=== PATIENT | female | born 1940 | race Caucasian/White ===

== ENCOUNTER 2020-04-23 09:11 | Outpatient (CLI) | payer MEDICARE, SELFPAY ==
--- NOTE | ~2020-04-23 | DEXA_ITS ---
Bone Density Report Name: Mervat Escobedo Age: 79 Sex: Female Ethnicity: White Date of : 1940 Indication: postmenopausal; Referring Provider: Landon Griffith Study: Bone densitometry was performed. Exam Date: April 23, 2020 Accession number: [id number] Bone Density: Region BMD T-score Z-score Classification AP Spine (L1, L2) 0.913 -0.6 1.8 Normal Femoral Neck (Left) 0.657 -1.7 0.5 Osteopenia Total Hip (Left) 0.730 -1.7 0.2 Osteopenia Total Hip Bilateral Avg 0.722 -1.8 0.2 Osteopenia Femoral Neck (Right) 0.598 -2.3 -0.1 Osteopenia Total Hip (Right) 0.713 -1.9 0.1 Osteopenia World Health Organization criteria for BMD impression classify patients as: Normal (T-score at or above -1.0), Osteopenia (T-score between -1.0 and -2.5), or Osteoporosis (T-score at or below -2.5). 10-year Fracture Risk(1): Major Osteoporotic Fracture 16% Hip Fracture 5.0% Reported Risk Factors: [place] (), Neck BMD=0.598, BMI=26.3 (1) FRAX(R) Version 3.08. Fracture probability calculated for an untreated patient. Fracture probability may be lower if the patient has received treatment. Previous Exams: Region Exam Age BMD T-score BMD Change BMD Change Date g/cm2 vs Baseline vs Previous AP Spine(L1, L2) 04/23/2020 79 0.913 -0.6 0.093(11.3%)# -0.003(-0.4%)# 11/06/2013 73 0.916 -0.6 0.096(11.7%)# 0.096(11.7%)# 12/13/2009 69 0.820 -1.4 Total Hip(Left) 04/23/2020 79 0.730 -1.7 -0.092(-11.2%) -0.129(-15.0%) 11/06/2013 73 0.859 -0.7 0.037(4.4%)# 0.037(4.4%)# 12/13/2009 69 0.822 -1.0 Total Hip(Right) 04/23/2020 79 0.713 -1.9 -0.115(-13.9%) -0.157(-18.1%) 11/06/2013 73 0.870 -0.6 0.042(5.1%)# 0.042(5.1%)# 12/13/2009 69 0.828 -0.9 *Denotes significance at 95% confidence level, LSC for AP Spine = 0.022 g/cm2, LSC for Total Hip = 0.027 g/cm2 Impression: The patient has low bone mass, based on the Right Femoral Neck T-score. The patient has an estimated ten-year risk of hip fracture of 5% and an estimated ten-year risk of major fracture of 16%, based on the WHO FRAX algorithm. No significant bone loss was observed. Discussion: BONE DENSITY IS LOW AT ONE OR MORE SKELETAL SITES. THE PATIENT'S BMD AND CLINICAL RISK FACTORS CONTRIBUTE TO THIS PATIENT'S INCREASED RISK OF FRACTURE. This patient's lowest T-score is low at one or more skeletal sites. It meets the World Health Organization's (WHO) criteria for ?low bone mass? (T-score between -1.0 and -2.5). The patient's 10-year risk of hip fracture as calculated by FRAX exceeds the threshold
--- NOTE | ~2020-04-23 | MM_ITS ---
EXAMINATION: MM screening garret BI w karlos HISTORY: Screening mammogram TECHNIQUE: Craniocaudal and mediolateral oblique 3-D tomosynthesis images were obtained and synthetic 2-D images were generated. CAD analysis was submitted and interpreted. COMPARISON: 03/10/2019, 12/17/2017, 12/14/2016 bilateral digital screening mammogram examinations BREAST PARENCHYMAL COMPOSITION: There are scattered areas of fibroglandular density. FINDINGS: Again noted is postoperative change including mild retraction and some architectural distor tion prominent calcified fat necrosis in the upper outer quadrant of the left breast. 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 There is suggestion of an approximately 5 mm and 6 mm masses in the inner aspect of the right breast. Diagnostic right mammogram and right breast ultrasound examination are recommended. Otherwise there is no evidence of interval suspicious mass, calcification, or architectural distortio n to suggest malignancy in either breast. There has been no suspicious interval change. IMPRESSION: 1. Suggestion of right breast masses 2. Recommend diagnostic right mammogram and right breast ultrasound examination. BI-RADS Category 0: Incomplete: Needs additional imaging evaluation. Reviewed, dictated and finalized at location A. IMPRESSION: 1. Suggestion of right breast masses 2. Recommend diagnostic right mammogram and right breast ultrasound examination . BI-RADS Category 0: Incomplete: Needs additional imaging evaluation.
== END 2020-04-23 09:12 | disposition home or self-care (01) ==
PROVIDERS: PCP Family Medicine; Visit Provider Family Medicine
DX: Z12.31 Encounter for screening mammogram for malignant neoplasm of breast (principal); M81.0 Age-related osteoporosis without current pathological fracture; R92.8 Other abnormal and inconclusive findings on diagnostic imaging of breast; M85.852 Other specified disorders of bone density and structure, left thigh; M85.851 Other specified disorders of bone density and structure, right thigh
CPT/HCPCS: 77063; 77067; 77080

== ENCOUNTER 2020-05-10 12:10 | Outpatient (CLI) | payer MEDICARE, SELFPAY ==
--- NOTE | ~2020-05-10 | MMUS_ITS ---
EXAMINATION: MM diagnostic mammo unilat RT, US breast RT limited HISTORY: Possible right breast masses on screening mammogram TECHNIQUE: Additional 3-D tomosynthesis images of the right breast were performed and synthetic 2-D i mages were generated. CAD analysis was submitted and interpreted. High resolution limited right breas t ultrasound was performed. COMPARISON: 04/23/2020, 03/10/2019, 12/17/2017, 12/14/2016 FINDINGS: MAMMOGRAPHIC FINDINGS: With spot compression, the right breast masses at the 3:00 and 2:00 locations in the right breast hav e a similar appearance to prior mammograms. There has been no suspicious interval change. No suspicio us calcification or architectural distortion are identified. ULTRASOUND: There is a 6 mm oval, circumscribed, parallel, hypoechoic mass with central echogenicity at the 1:00 location 5 cm from the nipple which has an appearance suggestive of an intramammary lymph node. A 4 m m round, circumscribed, parallel, hypoechoic mass with no posterior features or internal vascularity is present at the 3:00 location 3 cm from the nipple. IMPRESSION: 1. Probably benign right breast masses. 2. Recommend 6 month follow-up right diagnostic mammogram and targeted ultrasound. BI-RADS category 3, probably benign findings. Reviewed, dictated and finalized at location A. IMPRESSION: 1. Probably benign right breast masses. 2. Recommend 6 month follow-up right diagnostic mammogram and targeted ultrasou nd. BI-RADS category 3, probably benign findings.
== END 2020-05-10 12:11 | disposition home or self-care (01) ==
PROVIDERS: PCP Family Medicine; Visit Provider Family Medicine
DX: R92.8 Other abnormal and inconclusive findings on diagnostic imaging of breast (principal)
CPT/HCPCS: 76642; 77065

== ENCOUNTER 2021-01-10 13:51 | Outpatient (CLI) | payer MEDICARE, SELFPAY ==
--- NOTE | ~2021-01-10 | MMUS_ITS ---
EXAMINATION: MM diagnostic garret RT w karlos, US breast RT complete HISTORY: Follow-up right breast masses TECHNIQUE: Additional 3-D tomosynthesis images of the right breast were performed and synthetic 2-D i mages were generated. CAD analysis was submitted and interpreted. High resolution right breast ultras ound was performed. COMPARISON: Comparison to multiple prior studies sequentially, with oldest reviewed study dated 12/14. BREAST PARENCHYMAL COMPOSITION: Breast composed of scattered areas of fibroglandular density. FINDINGS: MAMMOGRAPHIC FINDINGS: There is a 6 mm mass in the upper central aspect of the right breast posteriorly which is unchanged i n size and appearance compared with prior studies dating back to 12/14/2016. There is a smaller mass i n the lower inner quadrant of the right breast which has decreased slightly in size compared with jessica or examination now measuring 5 mm compared with 6 mm on prior study. There is a punctate associated c alcification. ULTRASOUND: At 1:00, 5 cm from the nipple, there is an irregular shaped hypoechoic mass with associated internal calcification and mixed posterior attenuation measuring 6 mm corresponding to the larger mass by mamm ography. No internal vascularity. At 3:00, 3 cm from the nipple, there is an hypoechoic mass measurin g 5 x 4 x 4 mm without significant change from prior examination. There are no significant posterior features or internal vascularity. IMPRESSION: 1. Stable right breast masses with lack of interval change or slightly decreased and size compared wi th studies dating back to 12/14/2016. Given the lack of progression over 4 years these are considered benign. 2. Routine yearly screening mammogram and regular clinical breast examination are recommended. BI-RADS Category 2: Benign finding(s). Reviewed, dictated and finalized at location A. ST AND REPERTOIRE MANAGER IMPRESSION: 1. Stable right breast masses with lack of interval change or slightly decrease d and size compared with studies dating back to 12/14/2016. Given the lack of pr ogression over 4 years these are considered benign. 2. Routine yearly screening mammogram and regular clinical breast examination a re recommended. BI-RADS Category 2: Benign finding(s).
== END 2021-01-10 13:52 | disposition home or self-care (01) ==
PROVIDERS: PCP Family Medicine; Visit Provider Family Medicine
DX: R92.8 Other abnormal and inconclusive findings on diagnostic imaging of breast (principal)
CPT/HCPCS: 76641; 77061; 77065; G0279

== ENCOUNTER 2021-04-15 08:34 | Outpatient (CLI) | payer MEDICARE, SELFPAY ==
--- NOTE | 2021-04-15 | ECG_ITS ---
Measurements Intervals [place] Rate: 65 P: NC: 0 QRS: 24 QRSD: 97 T: -10 QT: 417 QTc: 436 Interpretive Statements ATRIAL FIBRILLATION NONSPECIFIC ST & T-WAVE ABNORMALITY- INFERIOR LEADS BASELINE ARTIFACT- I, II, III, AVR, AVL, AVF ABNORMAL ECG Electronically Signed On 04-15-2021 12:04:14 CDT by Ozzy Georges D.O.
[2021-04-15 10:00] LABS: Hematocrit 41.3 % (37.0-47.0); Hemoglobin 13.6 g/dL (12.0-15.0)
[2021-04-15 10:09] LABS: Albumin Level 4.3 g/dL (3.5-5.1); Estimated Glomerular Filt Rate > 60; Glucose 108 mg/dL (65-105)
[2021-04-15 10:41] LABS: Hemoglobin A1C 5.6 % (<5.7)
== END 2021-04-15 08:35 | disposition home or self-care (01) ==
PROVIDERS: PCP Family Medicine; Visit Provider Orthopaedic Surgery
DX: Z01.818 Encounter for other preprocedural examination (principal); I48.0 Paroxysmal atrial fibrillation; I10 Essential (primary) hypertension; R01.1 Cardiac murmur, unspecified; E03.9 Hypothyroidism, unspecified; D56.5 Hemoglobin E-beta thalassemia; M17.9 Osteoarthritis of knee, unspecified; I48.91 Unspecified atrial fibrillation
CPT/HCPCS: 36415; 82040; 82565; 82947; 83036; 85014; 85018; 93005

== ENCOUNTER 2021-06-19 09:51 | Outpatient (CLI) | payer MEDICARE, SELFPAY ==
[2021-06-19 11:22] LABS: Basophils Percent Auto 0.4 % (0.2-1.2); Eosinophils Absolute Auto 0.1 K/mm3 (0-0.3); Eosinophils Percent Auto 2.9 % (0-4.4); Hematocrit 38.5 % (37.0-47.0); Hemoglobin 12.9 g/dL (12.0-15.0); Immature Granulocyte Absolute 0.02 K/mm3 (0.00-0.031); Immature Granulocyte Percent A 0.4 % (0-0.5); Lymphocytes Absolute Auto 1.19 K/mm3 (0.9-3.2); Lymphocytes Percent Auto 24.4 % (18.3-44.2); Mean Corpuscular HGB Conc 33.5 g/dl (32-36); Mean Corpuscular Hemoglobin 31.2 pg (26-34); Mean Corpuscular Volume 93.2 fl (80-100); Mean Platelet Volume 9.3 fl (7.4-10.4); Monocytes Absolute Auto 0.6 K/mm3 (0.1-0.6); Monocytes Percent Auto 12.7 % (2.6-8.5); Neutrophils Absolute Auto 2.9 K/mm3 (1.3-6.7); Neutrophils Percent Auto 59.2 % (45.5-73.1); Platelet Count Result 227 k/mm3 (150-375); Red Blood Count 4.13 M/mm3 (4.2-5.4); Red Cell Distribution Width 11.9 % (11.5-14.5); White Blood Count 4.9 K/mm3 (4.5-10.0)
[2021-06-19 11:34] LABS: Anion Gap 7 mmol/L (8-16); Blood Urea Nitrogen 20 mg/dL (7-17); Calcium 10.3 mg/dL (8.4-10.2); Carbon Dioxide 31 mmol/L (22-30); Chloride 99 mmol/L (98-107); Estimated Glomerular Filt Rate 60; Glucose 105 mg/dL (65-110); Potassium 3.4 mmol/L (3.4-5.0); Sodium 137 mmol/L (137-145)
[2021-06-19 11:39] LABS: Urine Cotinine NEGATIVE
[2021-06-21 13:54] LABS: Albumin Level 4.2 g/dL (3.5-5.1)
== END 2021-06-19 09:52 | disposition home or self-care (01) ==
PROVIDERS: Anesthesiology; PCP Family Medicine; Visit Provider Orthopaedic Surgery
DX: M17.11 Unilateral primary osteoarthritis, right knee (principal); Z01.818 Encounter for other preprocedural examination
CPT/HCPCS: 36415; 80048; 80307; 82040; 85025; 87081

== ENCOUNTER 2021-07-06 01:27 | Day surgery (SDC) | payer MEDICARE, SELFPAY ==
[2021-06-19 10:18] VITALS: BP 130/69; PULSE 62; RESP 18; TEMP 36.9; O2SAT 96; BMI 29.7
[2021-07-06] VITALS (16 sets, daily range): BP systolic 114–141; BP diastolic 53–78; PULSE 53–78; RESP 12–20; TEMP 36.3–36.7; O2SAT 95–100
--- NOTE | ~2021-07-06 | XR_ITS ---
EXAMINATION: XR knee RT 2V DATE: 07/06/2021 09:32 INDICATION: Right knee arthroplasty. Postop. TECHNIQUE: 2 views of right knee were obtained. COMPARISON: Right knee radiographs 03/30/2021 FINDINGS: There is a total right knee arthroplasty without patellar resurfacing in near-anatomic alig nment. There are tiny osteophytes of the patella. There is gas in the knee joint and soft tissues, co nsistent with recent surgery. There is a small knee joint effusion. IMPRESSION: 1. Total right knee arthroplasty in near-anatomic alignment. Reviewed, dictated and finalized at location A.
[2021-07-06] MEDS: ACETAMINOPHEN 500 MG TABLET 1000 MG PO (06:26)
[2021-07-06] MEDS: LACTATED RINGERS 1,000 ML 30 ML IV CONT ×2 (06:30→09:19)
[2021-07-06] MEDS: TRANEXAMIC ACID 1,000MG/ISO100 1,000 MG/100 ML BAG 200 MG IVPB (06:36)
--- NOTE | 2021-07-06 06:44 | WPDANESEPPF ---
Anes - Initial Pre Proc Eval Procedure: Operation Date: 07/06/21 07:30 Proposed Procedures p Right Total Knee Arthroplasty - Nathan Vincent MD Date/Time: 07/06/21 06:44 Surgeon: Nathan Vincent MD Pre Op Diagnosis: Primary OA Right knee Patient Data Age: 81 Gender: F Height: 1.5 m Weight: 66.8 kg Last Vital Signs Temp 36.9 C 06/19/21 10:18 Pulse 62 06/19/21 10:18 Resp 18 06/19/21 10:18 BP 130/69 06/19/21 10:18 Pulse Ox 96 06/19/21 10:18 Allergies Allergy/AdvReac Type Severity Reaction Status Date / Time No Known Allergies Allergy Verified 07/06/21 06:21 Home Medications Medication Instructions Recorded Confirmed Type apixaban 5 mg tablet 5 mg PO BID 08/02/20 07/06/21 History cholecalciferol (vitamin D3) 25 2,000 unit PO DAILY tablet 12/15/20 07/06/21 History mcg (1,000 unit) tablet ytjpmxbz-kqw-efruw acid 0.4 1 tablet PO DAILY 03/31/21 07/06/21 History mg-lycopene 300 mcg-lutein 250 mcg tablet amiloride-hydrochlorothiazide 1 tablet PO QAM 06/19/21 07/06/21 History ferrous sulfate 27 mg PO DAILY 06/19/21 07/06/21 History metoprolol tartrate 12.5 mg PO BID 06/19/21 07/06/21 History nifedipine 30 mg PO QAM 06/19/21 07/06/21 History oxybutynin chloride 10 mg PO HS 06/19/21 07/06/21 History triamcinolone acetonide 1 applic TOPICAL DAILY PRN 06/19/21 07/06/21 History Patient hx anesthesia problems: none Family hx anesthesia problems: none PMFSH Past Medical History Medical History Current use of manager long term care anticoagulation Essential (primary) hypertension Heart murmur History of breast cancer Hypothyroidism IFG (impaired fasting glucose) OAB (overactive bladder) Osteoarthritis of both knees Osteopenia Paroxysmal A-fib Vitamin D deficiency, unspecified Surgical History Surgical History History of cholecystectomy History of hysterectomy History of lumpectomy History of tubal ligation Vaginal prolapse Family History Family History Sibling Family history of throat cancer Mother Acute myocardial infarction Other Diabetes mellitus Family history of arthritis Family history of coronary artery disease Family history of diabetes mellitus in first degree relative Social History Social History Smoking status: Never smoker Second hand tobacco smoke exposure: Yes Alcohol intake: never Substance use: never Substance use type: does not use Living arrangements: with family Additional living arrangements comments: SON AND [id number] Gender identity (if verbalized by the patient): Female Spiritual care concerns: Yes (REFUSES BLOOD PRODUCTS/TRANSFUSION) Anes - Eval Final PreProcedure Day of Procedure 07/06/21 06:44 Patient weight: overweight Heart: regular rate and rhythm Lungs: clear to auscultation and normal air movement Airway: Mallampati scale class II Neurological: alert and oriented Last oral intake: >/= 8 hours ASA classification: III Emergent: no Anesthetic plan: proceed Anesthesia type and monitoring: general LMA and standard monitoring Informed Consent: The patient's anesthetic plan and its attendant risks and benefits were discussed with the patient/family/POA. Questions were solicited and answers provided to the satisfaction of the patient/family/POA.
--- NOTE | 2021-07-06 07:23 | WPDHPUPDATE1 ---
History and Physical Update Update Date/Time: 07/06/21 07:23 History and Physical has been reviewed, including an updated exam of the patient. There are NO changes in the patient's condition. Risks, benefits, and alternatives have been discussed and questions answered. Patient agrees to proceed with procedure.
--- NOTE | 2021-07-06 07:26 | WPDANESPNB ---
Anes - Peripheral Nerve Block Date/Time: 07/06/21 07:26 I have discussed with the patient/family/POA the placement of a peripheral nerve block for post-operative pain management, including associated risks, benefits, complications, and side effects. Alternative methods of post-operative analgesia were detailed. Questions were solicited and answers provided to the satisfaction of the patient/family/POA. Time-Out: A pre-procedural Time-Out was completed immediately before starting the procedure and confirmed: Patient Identification, Site, Procedure, Patient Position and the Availability of Requisite Equipment. Clinical Indications: Acute post-operative pain management requested by the operative surgeon. Nerve Block Insertion Note Anes-nerve block: adductor canal right Patient position: supine Skin prep: chlorhexidine Needle: 22 gauge, stimulating, insulated echogenic needle. Needle length: 80 mm Technique: ultrasound Injectate: bupivacaine 0.5% with epi 5 mcg/ml (30cc - no epi) Observations: tolerated well Complications: none Procedure start time:: 721 Procedure end time:: 724
[2021-07-06] MEDS: ceFAZolin 2 GM/D5W 50 ML 2 GM/50 ML BAG IVPB (07:29)
[2021-07-06] MEDS: fentaNYL CITRATE INJ (*CRX) 100 MCG/2 ML VIAL 25 MCG IV PUSH ×3 (09:53→10:19)
--- NOTE | 2021-07-06 11:45 | ADMGEN ---
This patient, Mervat Escobedo, was admitted to Medical Room 261-01 from pacu. Patient/family oriented to hospital policies and general routines including ID bracelet, bed and alarms, visiting hours, pain management, procedures, bathroom and other care routines, personal items, smoking policy, room service/diet, and visiting hours. Information on how to activate the Rapid Response Team has been discussed. Patient/Family are encouraged to report perceived risks to care and to ask questions if they do not understand what they are told or what they should do.
[2021-07-06] MEDS: CHOLECALCIFEROL 1,000 UNITS TABLET 2000 UNITS PO (12:41)
--- NOTE | 2021-07-06 16:16 | P.OP_ITS ---
Procedure Note - Detailed Date of Procedure 07/06/21 Pre-op Diagnosis Primary OA Right knee Post-op Diagnosis same Procedure Performed Total knee arthroplasty, right. Surgeon Nathan Vincent MD Electric Well Logging Operator Jyoti Benton PA-C Anesthesia general and regional (Subsartorial block.) Findings Good bone quality. Standard resections. PCL release. Description of Procedure Physician integration assistant, Jyoti Benton PA-C, required for surgery; including patient positioning, draping, tissue retraction, maintaining instrument position, cement removal, wound closure, and dressing placement. OPERATIVE DETAILS: The patient was given a nerve block preoperatively, and then brought to the operating room. A general anesthetic was administered. The leg was prepped and draped in the usual sterile fashion. The limb was elevated and the tourniquet inflated to 300 mmHg. A longitudinal incision was created along the medial border of the patella and patellar tendon, and a minimally invasive optimized trivector approach to the knee was performed. A moderate medial release was taken. The knee was then flexed. The osteophytes were carefully removed. The intramedullary guide was placed in the femoral canal. The distal femoral resection was then taken with the oscillating saw. The collateral ligaments were carefully protected. The tibia was carefully exposed. The jig was applied, and the proximal tibia was resected according to preoperative plan. The pain really anesthetic mixture was injected into the periarticular tissues. The knee was balanced in extension, and appropriate releases were taken where needed. The anterior cruciate ligament and meniscal remnants were removed. The posterior cruciate ligament was preserved, and released distally later. The patella was in good condition. Osteophytes trimmed, and denervation performed with the bipolar cautery. The femur was sized and rotation assessed using a combination of gap balancing, posterior referencing, and the AP axis. The 4 in 1 cutting block was used to finish the femoral cuts after equal gaps were assured. The lug holes were drilled. The osteophytes were carefully removed from the back of the knee. The knee was copiously irrigated with antibiotic solution periodically throughout the procedure. The meniscal remnants were removed. The spacer block was used to confirm equal flexion and extension gaps. Further releases were performed as needed. The tibia was sized and broached. The bony surfaces were prepared for cementing with pulsatile lavage. The real tibial component and femoral components were cemented into position. Excess cement was carefully removed. The polyethylene insert was placed. Patellar tracking was carefully assessed. No additional releases were required. The wound was closed with #1 Vicryl suture, #2 Quill suture, 2-Yuwvxh-sgp suture, and 2-0 Strata-fix suture followed by Steri-Strips. A sterile bulky dressing was applied. Meticulous hemostasis was maintained throughout the procedure. There were no complications. The patient was extubated and brought to the recovery room in stable condition after the application of sterile dressing with Amol bandage. Implants Optimum Magazineathlon knee system, low profile cemented tibia size 4, cemented cruciate-retaining femoral component size 4 ,and an 9 mm cruciate stabilizing polyethylene insert. Estimated Blood Loss -100.0 Drains No Complications No immediate complications Condition stable Disposition PACU
[2021-07-06] MEDS: METOPROLOL TARTRATE 12.5 MG TABLET PO (16:27)
--- NOTE | 2021-07-06 17:27 | PHAR ---
HOME MED UNABLE TO IDENTIFY PINK TABLET NO MARKINGS FERROUS SULFATE 27MG ONE DAILY
[2021-07-06] MEDS: APIXABAN 2.5 MG TABLET PO (22:31)
[2021-07-06] MEDS: FAMOTIDINE 20 MG TABLET PO (22:31)
[2021-07-06] MEDS: SENNOSIDES 8.6 MG TABLET 17.2 MG PO (22:32)
[2021-07-07 00:29] VITALS: BP 133/60; PULSE 83; RESP 18; TEMP 36.4; O2SAT 96
[2021-07-07 04:29] VITALS: BP 141/55; PULSE 83; RESP 20; TEMP 36.5; O2SAT 98
[2021-07-07 06:25] LABS: Basophils Percent Auto 0.1 % (0.2-1.2); Eosinophils Absolute Auto 0.1 K/mm3 (0-0.3); Eosinophils Percent Auto 0.5 % (0-4.4); Hematocrit 33.5 % (37.0-47.0); Hemoglobin 10.9 g/dL (12.0-15.0); Immature Granulocyte Absolute 0.04 K/mm3 (0.00-0.031); Immature Granulocyte Percent A 0.4 % (0-0.5); Lymphocytes Absolute Auto 1.09 K/mm3 (0.9-3.2); Lymphocytes Percent Auto 11.2 % (18.3-44.2); Mean Corpuscular HGB Conc 32.5 g/dl (32-36); Mean Corpuscular Hemoglobin 30.9 pg (26-34); Mean Corpuscular Volume 94.9 fl (80-100); Mean Platelet Volume 10.4 fl (7.4-10.4); Monocytes Percent Auto 10.7 % (2.6-8.5); Neutrophils Absolute Auto 7.5 K/mm3 (1.3-6.7); Neutrophils Percent Auto 77.1 % (45.5-73.1); Platelet Count Result 206 k/mm3 (150-375); Red Blood Count 3.53 M/mm3 (4.2-5.4); White Blood Count 9.8 K/mm3 (4.5-10.0)
[2021-07-07 06:47] LABS: Anion Gap 8 mmol/L (8-16); Blood Urea Nitrogen 19 mg/dL (7-17); Calcium 9.7 mg/dL (8.4-10.2); Carbon Dioxide 29 mmol/L (22-30); Chloride 96 mmol/L (98-107); Estimated Glomerular Filt Rate 53; Glucose 104 mg/dL (65-110); Potassium 3.7 mmol/L (3.4-5.0); Sodium 133 mmol/L (137-145)
[2021-07-07 08:49] VITALS: PULSE 65
[2021-07-07] MEDS: NIFEdipine 30 MG TAB.ER.24 PO (08:49)
[2021-07-07] MEDS: METOPROLOL TARTRATE 12.5 MG TABLET PO (08:49)
[2021-07-07] MEDS: aMILoride HCL 5 MG TABLET PO (08:49)
[2021-07-07] MEDS: hydroCHLOROthiazide 25 MG TABLET 50 MG PO (08:50)
[2021-07-07] MEDS: FAMOTIDINE 20 MG TABLET PO (08:50)
[2021-07-07] MEDS: APIXABAN 2.5 MG TABLET PO (08:50)
[2021-07-07] MEDS: CHOLECALCIFEROL 1,000 UNITS TABLET 2000 UNITS PO (08:50)
[2021-07-07] MEDS: MULTIVITAMINS /C LUTEIN (CENTRUM SILVER) TABLET *BKC 1 TAB PO (08:50)
[2021-07-07 10:05] VITALS: BP 147/67; PULSE 83; RESP 16; TEMP 36.7; O2SAT 96
--- NOTE | 2021-07-07 11:29 | PM.DS ---
DS: Admitting Diagnosis Admitting Diagnosis OA knee Right DS: Discharge Diagnosis Discharge Diagnosis (1) Status post total right knee replacement: Code(s): Z96.651 - Presence of right artificial knee joint Status: Acute Assessment and Plan: Postop day 1: Right total knee arthroplasty. Patient tolerated procedure well. No complications. Pain manageable with pain medication. No numbness or tingling. We had a lengthy discussion regarding postoperative wound care, limitations, expectations, and exercises. Patient shows good understanding. She has had initial physical therapy and is tolerating it well. Patient just found out that her son as . She does not have help at home and will need Home Health to help her with hygiene post operatively. DVT prophylaxis: Eliquis 2.5 mg BID for 12 days then back to normal 5mg BID dose. Pain medication: Percocet. Patient has followup appointment with Dr. Vincent in 3 weeks. If questions or concerns please call office at . DS: Summary Hospital Course Reason for hospitalization: Total knee arthroplasty Hospital Course: Patient tolerated procedure well. Has had initial PT/OT. No complications. Pain well managed. Status at Discharge Functional status at discharge: uses cane/walker Overall status at discharge: patient is progressing back to baseline Time Spent with Patient Time attestation: Total time spent providing and/or coordinating discharge services: Exam Narrative: Normal weight female. Resting comfortably in chair. No acute distress. A&O x3. Wearing compression socks bilaterally. Dressing intact. Small hayder sized area of dried blood on Mepilex. Moderate swelling. Small area of ecchymosis. No erythema. No hematoma. Good early range of motion. Calf nontender. Neurologic status intact. No varicosities. Distal pulses palpable. DS: Data Data Completed and Pending Labs on day of discharge: Labs from last 24 hours 07/07/21 07/07/21 05:15 05:15 WBC 9.8 RBC 3.53 L Hgb 10.9 L Hct 33.5 L MCV 94.9 MCH 30.9 MCHC 32.5 RDW 12.0 Plt Count 206 MPV 10.4 Immature Gran % (Auto) 0.4 Neut % (Auto) 77.1 H Lymph % (Auto) 11.2 L [place] % (Auto) 10.7 H Eos % (Auto) 0.5 Baso % (Auto) 0.1 L Lymph # (Auto) 1.09 [place] # (Auto) 1.0 H Eos # (Auto) 0.1 Baso # (Auto) 0.0 Abs Immat Gran (auto) 0.04 H Absolute Neuts (auto) 7.5 H Absolute Nucleated RBC 0.0 Nucleated RBC % 0.0 Sodium 133 L Potassium 3.7 Chloride 96 L Carbon Dioxide 29 Anion Gap 8 BUN 19 H Creatinine 1.00 Estim Creat Clear Calc Not Reportable Estimated GFR 53 L Glucose 104 Calcium 9.7 Discharge Plan Discharge Patient Disposition: Home Health Service Discharge Instructions: See instruction sheet Patient Instructions: Antibiotic Form, Apixaban (By mouth) Stand Alone Forms: General Discharge Information Follow-up/Referrals: Jyoti Benton PA [Physician Super[facility]] - Discharge Medications: New Eliquis 2.5 mg Tablet 2.5 mg PO Q12HR Qty: 24 RF: 0 oxycodone-acetaminophen 5-325 mg tablet 1 - 2 tablet PO Q4-6H MDD 6 PRN (Reason: pain) Qty: 30 RF: 0 Continued cholecalciferol (vitamin D3) 25 mcg (1,000 unit) tablet 2,000 unit PO DAILY RF: 0 Centrum Silver 0.4-300-250 mg-mcg-mcg tablet 1 tablet PO DAILY RF: 0 ferrous sulfate 27 mg iron Tablet 27 mg PO DAILY RF: 0 nifedipine 30 mg tablet extended release 24hr 30 mg PO QAM RF: 0 amiloride-hydrochlorothiazide 5-50 mg tablet 1 tablet PO QAM RF: 0 oxybutynin chloride 10 mg tablet extended release 24hr 10 mg PO HS RF: 0 triamcinolone acetonide 0.1 % cream 1 applic topical DAILY PRN (Reason: itching) RF: 0 metoprolol tartrate 25 mg tablet 12.5 mg PO BID RF: 0 Held Eliquis 5 mg tablet 5 mg PO BID RF: 0 Hold Instructions: Resume on 07/19/21. Take 2.5 mg (half a pill) twice a
[2021-07-07] MEDS: oxyCODONE HCL (*CRX) 5 MG TAB IR PO (13:39)
[2021-07-07 14:35] VITALS: BP 141/52; PULSE 83; RESP 16; TEMP 36.9; O2SAT 94
--- NOTE | 2021-07-07 15:36 | P.PNAN_ITS ---
Anes - Prog Note Post-Op Date/Time: 07/07/21 15:36 Cardiovascular status: normal Respiratory status: normal Airway patency: baseline Mental status: baseline Post-Op hydration status: normal Vital Signs: Last Vital Signs Temp 36.9 C 07/07/21 14:35 Pulse 83 07/07/21 14:35 Resp 16 07/07/21 14:35 BP 141/52 H 07/07/21 14:35 Pulse Ox 94 07/07/21 14:35 Pain Score (VAS): 12/04 I/O: Intake & Output 07/06/21 07/07/21 07/07/21 23:59 07:59 15:59 Intake Total 1390 450 300 Output Total 500 1400 Balance 890 -950 300 Laboratory Tests 07/07/21 05:15 07/07/21 05:15 07/07/21 07/07/21 05:15 05:15 WBC 9.8 RBC 3.53 L Hgb 10.9 L Hct 33.5 L MCV 94.9 MCH 30.9 MCHC 32.5 RDW 12.0 Plt Count 206 MPV 10.4 Immature Gran % (Auto) 0.4 Neut % (Auto) 77.1 H Lymph % (Auto) 11.2 L [place] % (Auto) 10.7 H Eos % (Auto) 0.5 Baso % (Auto) 0.1 L Lymph # (Auto) 1.09 [place] # (Auto) 1.0 H Eos # (Auto) 0.1 Baso # (Auto) 0.0 Abs Immat Gran (auto) 0.04 H Absolute Neuts (auto) 7.5 H Absolute Nucleated RBC 0.0 Nucleated RBC % 0.0 Sodium 133 L Potassium 3.7 Chloride 96 L Carbon Dioxide 29 Anion Gap 8 BUN 19 H Creatinine 1.00 Estim Creat Clear Calc Not Reportable Estimated GFR 53 L Glucose 104 Calcium 9.7 Post-procedural complaints: none Patient Feedback: Patient satisfied with anesthetic care.
== END 2021-07-07 16:41 | disposition home health service (06) ==
LOC: ANHSURGERY 09:40 → ANH2MED 10:48
PROVIDERS: Physician Assistant Surgical; PCP Family Medicine; Visit Provider Orthopaedic Surgery
PROC: (CPT 27447; principal; 2021-07-06 07:30)
DX: M16.11 Unilateral primary osteoarthritis, right hip (principal); G89.18 Other acute postprocedural pain; I10 Essential (primary) hypertension; R01.1 Cardiac murmur, unspecified; E03.9 Hypothyroidism, unspecified; R73.01 Impaired fasting glucose; N32.81 Overactive bladder; E55.9 Vitamin D deficiency, unspecified; Z85.3 Personal history of malignant neoplasm of breast; I48.0 Paroxysmal atrial fibrillation; Z79.01 Long term (current) use of anticoagulants
CPT/HCPCS: 27447; 64447; 36415; 73560; 80048; 80307; 82040; 85025; 87081; 97110; 97116; 97161; 97165; 97530; 97535; A9270; C1713; C1776; J0131; J0171; J0690; J1100; J1885; J2270; J2405; J2704; J2795; J3010; J7120

== ENCOUNTER 2022-02-20 09:57 | Outpatient (CLI) | payer MEDICARE, SELFPAY ==
--- NOTE | ~2022-02-20 | MM_ITS ---
EXAMINATION: MM screening [facility] BI w karlos HISTORY: Screening mammogram, history of left breast cancer TECHNIQUE: Craniocaudal and mediolateral oblique 3-D tomosynthesis images were obtained and synthetic 2-D images were generated. CAD analysis was submitted and interpreted. COMPARISON: 01/10/2021, 05/10/2020, 04/23/2020, 03/10/2019 BREAST PARENCHYMAL COMPOSITION: There are scattered areas of fibroglandular density. FINDINGS: Stable lumpectomy changes are noted in the left breast. There are also stable masses of the right breast, considered benign given the lack of interval change. There is no suspicious mass, calc ification, or architectural distortion to suggest malignancy in either breast. There has been no susp icious interval change. IMPRESSION: 1. No mammographic evidence of malignancy. 2. Recommend routine screening mammography in one year. BI-RADS Category 2: Benign finding(s). Reviewed, dictated and finalized at location A.
== END 2022-02-20 09:58 | disposition home or self-care (01) ==
LOC: ANHIMG 09:59
PROVIDERS: PCP Family Medicine; Visit Provider Family Medicine
DX: Z12.31 Encounter for screening mammogram for malignant neoplasm of breast (principal)
CPT/HCPCS: 77063; 77067

== ENCOUNTER 2022-05-01 14:01 | Outpatient (CLI) | payer MEDICARE, SELFPAY ==
--- NOTE | ~2022-05-01 | DEXA_ITS ---
Bone Density Report Name: ELVIA HAYES Age: 81 Sex: Female Ethnicity: White Date of : 1940 Indication: osteopenia; height loss; cancer; hysterectomy; postmenopausal Referring Provider: PAYTON LANDAVERDE Study: Bone densitometry was performed. Exam Date: May 01, 2022 Accession number: [id number] Bone Density: Region BMD T-score Z-score Classification AP Spine(L1, L2) 1.002 0.2 2.7 Normal Femoral Neck (Left) 0.653 -1.8 0.5 Osteopenia Total Hip (Left) 0.726 -1.8 0.3 Osteopenia Femoral Neck (Right) 0.589 -2.3 0.0 Osteopenia Total Hip (Right) 0.664 -2.3 -0.2 Osteopenia Total Hip Mean 0.695 -2.1 0.1 Osteopenia World Health Organization criteria for BMD impression classify patients as: Normal (T-score at or above -1.0), Osteopenia (T-score between -1.0 and -2.5), or Osteoporosis (T-score at or below -2.5). 10-year Fracture Risk(1): Major Osteoporotic Fracture 17% Hip Fracture 5.4% Reported Risk Factors: [place] (), Neck BMD=0.589, BMI=27.1 (1) FRAX(R) Version 3.08. Fracture probability calculated for an untreated patient. Fracture probability may be lower if the patient has received treatment. Previous Exams: Region Exam Age BMD T-score BMD Change BMD Change Date g/cm2 vs Baseline vs Previous AP Spine (L1-L2) 05/01/2022 81 1.002 0.2 0.090 (9.8%)* 0.090 (9.8%)* 04/23/2020 79 0.913 -0.6 Total Hip(Left) 05/01/2022 81 0.726 -1.8 -0.004 (-0.5%) -0.004 (-0.5%) 04/23/2020 79 0.730 -1.7 Total Hip(Right) 05/01/2022 81 0.664 -2.3 -0.048 (-6.8%) -0.048 (-6.8%) 04/23/2020 79 0.713 -1.9 *Denotes significance at 95% confidence level, LSC for AP Spine = 0.022 g/cm2, LSC for Total Hip = 0.027 g/cm2 Clinical Information Provided by Patient: Has used the following medications: Vitamin D Has the following medical conditions: Cancer, Hysterectomy Patient maximum height was 62 Menopause Age: 52 Does not regularly consume dairy products Drinks caffeinated beverages Onset of menses at age 14 Number of children 3 Impression: The patient has low bone mass, based on the Right Total Hip T-score. The patient has an estimated ten-year risk of hip fracture of 5.4% and an estimated ten-year risk of major fracture of 17%, based on the WHO FRAX algorithm. The BMD for the Total Hip(Right) decreased, changing by -6.8% since the last DXA exam. Discussion: BONE DENSITY IS LOW AT ONE OR MORE SKELETAL SITES. THE
== END 2022-05-01 14:02 | disposition home or self-care (01) ==
PROVIDERS: PCP Family Medicine; Visit Provider Physician Assistant
DX: Z78.0 Asymptomatic menopausal state (principal); M85.852 Other specified disorders of bone density and structure, left thigh; M85.851 Other specified disorders of bone density and structure, right thigh
CPT/HCPCS: 77080

== ENCOUNTER 2023-04-05 13:37 | Outpatient (CLI) | payer OTHER, SELFPAY ==
--- NOTE | ~2023-04-05 | MM_ITS ---
EXAMINATION: MM screening [facility] BI w karlos HISTORY: Screening mammogram, history of left breast cancer TECHNIQUE: Craniocaudal and mediolateral oblique 3-D tomosynthesis images were obtained and synthetic 2-D images were generated. CAD analysis was submitted and interpreted. COMPARISON: 02/20/2022, 01/10/2021, 05/10/2020, 04/23/2020 BREAST PARENCHYMAL COMPOSITION: There are scattered areas of fibroglandular density. FINDINGS: Again noted are stable lumpectomy changes in the left breast. Stable right breast masses ar e considered benign given the lack of interval change. No suspicious mass, calcification, or architec tural distortion are identified in either breast to suggest malignancy. There has been no suspicious interval change. IMPRESSION: 1. No mammographic evidence of malignancy. 2. Recommend routine screening mammography while the patient remains in good health. BI-RADS Category 2: Benign finding(s). Reviewed, dictated and finalized at location A. IMPRESSION: 1. No mammographic evidence of malignancy. 2. Recommend routine screening mammography while the patient remains in good he alth. BI-RADS Category 2: Benign finding(s).
== END 2023-04-05 13:38 | disposition home or self-care (01) ==
LOC: ANHIMG 13:39
PROVIDERS: PCP Family Medicine; Visit Provider Physician Assistant
DX: Z12.31 Encounter for screening mammogram for malignant neoplasm of breast (principal)
CPT/HCPCS: 77063; 77067

== ENCOUNTER 2024-02-27 13:53 | Outpatient (CLI) | payer MEDICARE, SELFPAY ==
--- NOTE | ~2024-02-27 | US_ITS ---
EXAMINATION: US arterial ankle brachial ind DATE: 02/27/2024 15:24 INDICATION: Peripheral vascular disease, unspecified. TECHNIQUE: Segmental pressures and plethysmographic and Doppler waveforms of the brachial and lower e xtremity arteries were obtained. COMPARISON: None. FINDINGS: Right and left brachial artery pressures of 160 mm Hg and 168 mm Hg, respectively, are concordant (no rmal difference <= 30 mmHg). The right ankle-brachial index (GRETCHEN) is 1.05 (normal >= 0.9-1.0). The right great toe-brachial index (TBI) was not measured. Arterial Doppler waveforms are monophasic at the ankle. The left GRETCHEN is 1.05. The left TBI was not measured. Arterial Doppler waveforms are biphasic in poste rior tibial artery and biphasic in dorsalis pedis. IMPRESSION: 1. Normal ABIs. No significant arterial occlusive disease. Reviewed, dictated and finalized at location A.
== END 2024-02-27 13:54 | disposition home or self-care (01) ==
PROVIDERS: PCP Family Medicine; Visit Provider Family Medicine
DX: I73.9 Peripheral vascular disease, unspecified (principal)
CPT/HCPCS: 93922

== ENCOUNTER 2024-07-30 15:57 | Inpatient (IN) | payer MEDICARE, SELFPAY ==
[2024-07-30] VITALS (41 sets, daily range): BP systolic 131–186; BP diastolic 68–90; PULSE 60–83; RESP 10–20; TEMP 36.6; O2SAT 93–100
--- NOTE | ~2024-07-30 | XR_ITS ---
Supine and upright views of the abdomen Clinical history: Small bowel obstruction COMPARISON: 08/02/2024 Findings: Bowel gas pattern is nonspecific. No evidence for obstruction or free air. No abnormal mass lesion or calcification is seen. Degenerative change of the lumbar spine again noted. Impression: Nonspecific bowel gas pattern. Reviewed, dictated and finalized at [facility]. Impression: Nonspecific bowel gas pattern.
--- NOTE | ~2024-07-30 | XR_ITS ---
EXAMINATION: XR sm bowel follow through [facility] DATE: 08/01/2024 11:33 INDICATION: Small bowel obstruction. TECHNIQUE: Oral contrast was administered, and a time course of radiographs of the abdomen was obtain ed. Fluoroscopy of the small bowel was not performed. Fluoroscopy exposure time was 0 minutes. The to james number of images was 11. COMPARISON: CT abdomen and pelvis 07/31/2024 FINDINGS: The nasogastric tube tip is in the stomach. There are dilated loops of small bowel. The colon is deco mpressed. Transit time from the stomach to proximal colon was approximately 1.5 hours. Surgical clips in the right upper quadrant are likely from cholecystectomy. IMPRESSION: 1. Dilated small bowel with normal transit time of contrast to the colon, consistent with partial sma ll bowel obstruction. Reviewed, dictated and finalized at location A. IMPRESSION: 1. Dilated small bowel with normal transit time of contrast to the colon, consi stent with partial small bowel obstruction.
--- NOTE | ~2024-07-30 | CT_ITS ---
Non-contrast CT scan of the Abdomen and Pelvis Clinical indication: Abdominal pain Technique: 2.5 mm axial scans were obtained through the abdomen and pelvis without intravenous or or al contrast. Dose reduction technique was used on this scan by utilizing automated exposure control a nd iterative reconstruction technique. The dose-length product (DLP) was 275.11 mGy-cm. Findings: Images through the lung bases reveal no abnormalities. There is no evidence of renal or ureteral calculi. The kidneys and the ureters are nondilated. The liver, spleen, pancreas, and right adrenal gland appear normal. 1.6 cm left adrenal nodule is ind eterminate. Cholecystectomy clips are present. There are atherosclerotic calcifications of the aorta. Multiple dilated small bowel loops are present, with transition point in the right lower quadrant/rig ht pelvis (axial image 102), compatible small bowel obstruction. Distal small bowel is decompressed. Sigmoid diverticulosis noted. Images through the pelvis were performed. There is no evidence of ascites or lymphadenopathy. Urinary bladder unremarkable. No pelvic mass seen. Impression: Small bowel obstruction, with transition point as detailed above. 1.6 cm indeterminate left adrenal nodule. Consider follow-up MR to attempt to confirm benign adenoma. Reviewed, dictated and finalized at [facility]. Impression: Small bowel obstruction, with transition point as detailed above. 1.6 cm indeterminate left adrenal nodule. Consider follow-up MR to attempt to c onfirm benign adenoma.
--- NOTE | ~2024-07-30 | CT_ITS ---
EXAMINATION: CT soft tissue neck wo con DATE: 07/30/2024 21:58 INDICATION: Food stuck in throat. TECHNIQUE: Computed tomography (CT) of the neck was performed without intravenous contrast. Automated exposure control and iterative reconstruction technique were employed. The dose-length product was 2 38.82 mGy-cm. COMPARISON: None FINDINGS: There is a multinodular goiter. There are no pathologically enlarged lymph nodes. The phary nx and larynx are normal. The cervical esophagus is normal. There is mild mucosal thickening in the p aranasal sinuses. The mastoid air cells are normal. There is severe cervical spondylosis. IMPRESSION: 1. No etiology for the patient's symptoms. Reviewed, dictated and finalized at location A.
--- NOTE | ~2024-07-30 | XR_ITS ---
EXAMINATION: XR abdomen/kub 1V DATE: 08/01/2024 05:55 INDICATION: Small bowel obstruction. TECHNIQUE: A supine view of the abdomen on 2 radiographs was obtained. COMPARISON: CT abdomen and pelvis 07/31/2024 FINDINGS: There are multiple dilated loops of small bowel. The colon is decompressed. The nasogastric tube tip is in the stomach. Surgical clips in the right upper quadrant are likely from cholecystecto my. IMPRESSION: 1. Persistently dilated small bowel, consistent with small bowel obstruction. Reviewed, dictated and finalized at location A.
--- NOTE | ~2024-07-30 | XR_ITS ---
Supine and upright views of the abdomen Clinical history: Small bowel obstruction COMPARISON: 08/01/2024 Findings: Bowel gas pattern is nonspecific. Oral contrast present in large bowel. No evidence for obs truction or free air. No abnormal mass lesion or calcification is seen. Dextroscoliosis of the lumbar spine noted. Impression: Nonspecific bowel gas pattern, with oral contrast and large bowel. Reviewed, dictated and finalized at location . Impression: Nonspecific bowel gas pattern, with oral contrast and large bowel.
--- NOTE | ~2024-07-30 | XR_ITS ---
Upright portable view of the abdomen Clinical history: NG tube placement Findings: NG tube in satisfactory position. Several distended small bowel loops are present. No defin ite free air. No abnormal mass lesion or calcification is seen. Osseous structures are intact. Impression: NG tube in satisfactory position. Small bowel obstruction. Reviewed, dictated and finalized at [facility]. Impression: NG tube in satisfactory position. Small bowel obstruction.
--- NOTE | ~2024-07-30 | XR_ITS ---
EXAMINATION: XR chest 2V DATE: 07/30/2024 20:53 INDICATION: Shortness of breath. TECHNIQUE: Frontal and lateral views of the chest were obtained. COMPARISON: None. FINDINGS: A calcified left lung nodule is consistent with old granulomatous disease. No pleural effus ion or pneumothorax. The heart size is normal. Surgical clips in the right upper quadrant are likely from cholecystectomy. IMPRESSION: 1. No acute cardiopulmonary disease. Reviewed, dictated and finalized at location A.
--- NOTE | 2024-07-30 20:21 | ED.CHESTPAIN ---
HPI - Chest Pain General Chief Complaint: Skin/Abscess/Foreign Body <Gely Helms APRN - Last Filed: 07/31/24 04:03> Stated Complaint: food bolus <Gely Helms APRN - Last Filed: 07/31/24 04:03> Time Seen by Provider: 07/30/24 18:49 <Gely Helms APRN - Last Filed: 07/31/24 04:03> Source: patient and family <Gely Helsm APRN - Last Filed: 07/31/24 04:03> Mode of arrival: ambulatory <Gely Helms APRN - Last Filed: 07/31/24 04:03> Limitations: no limitations <Gely Helms APRN - Last Filed: 07/31/24 04:03> History of Present Illness HPI narrative: Pt is an 84-year-old female who presents to the ER with complaints of shrimp peeling machine tender stuck in my throat along with vomiting, chest pain, and increased SOB. She reports she ate a chicken finger on Saturday night and has been unable to eat or keep anything down since Saturday. Pt reports she has never been a cigarette smoker, but reports my smoked enough for both of us. She reports she has a history of high blood pressure, a heart murmur, and a. fib. Pt reports she continues to feel the shrimp peeling machine tender in her throat and in her upper abdominal area. She denies shortness of breath at this time, but does endorses lower mid-sternal chest pain. Pt also endorses lower abdominal pain. She reports the chest pain and lower abdominal pain are constant. The shortness of breath is intermittent, but has become worse since she was unable to swallow the shrimp peeling machine tender. <Gely Helms APRN - Last Filed: 07/31/24 04:03> Related Data Home Medications: Home Medications Medication Instructions Recorded Confirmed cholecalciferol (vitamin D3) 25 2,000 unit PO DAILY 12/15/20 05/26/24 mcg (1,000 unit) tablet triamcinolone acetonide 0.1 % 1 applic topical DAILY PRN itching 06/19/21 05/26/24 topical cream rivaroxaban 20 mg tablet (Xarelto) 20 mg PO DAILY 08/08/21 05/26/24 amiodarone 200 mg tablet 200 mg PO DAILY 04/24/22 05/26/24 nifedipine 30 mg tablet,extended 30 mg PO DAILY 02/20/23 05/26/24 release <Gely Helms APRN - Last Filed: 07/31/24 04:03> Allergies/Adverse Reactions: Allergies Allergy/AdvReac Type Severity Reaction Status Date / Time No Known Allergies Allergy Verified 05/26/24 09:09 <Gely Helms APRN - Last Filed: 07/31/24 04:03> Review of Systems Review of Systems: All systems reviewed & are unremarkable except as noted in HPI and below <Gely Helms APRN - Last Filed: 07/31/24 04:03> [facility] Past Medical History Medical History: Medical History Current use of ocean transportation intermediary anticoagulation Essential (primary) hypertension Heart murmur History of breast cancer HLD (hyperlipidemia) Hypothyroidism IFG (impaired fasting glucose) OAB (overactive bladder) Osteoarthritis of both knees Osteopenia Paroxysmal A-fib Vitamin D deficiency, unspecified <Gely Helms APRN - Last Filed: 07/31/24 04:03> Surgical History Surgical History: Surgical History History of cholecystectomy History of hysterectomy History of lumpectomy History of tubal ligation Vaginal prolapse <Gely Helms APRN - Last Filed: 07/31/24 04:03> Family History Family History: Family History Sibling Family history of throat cancer Mother Acute myocardial infarction Other Diabetes mellitus Family history of arthritis Family history of coronary artery disease Family history of diabetes mellitus in first degree relative <Gely Helms APRN - Last Filed: 07/31/24 04:03> Social History Social History: Social History Social History: Smoking status: Never smoker Second hand tobacco smoke exposure: Yes A
--- NOTE | 2024-07-30 20:27 | ECG_ITS ---
Test Date: 2024-07-30 20:42:04 Measurements Intervals [place] Rate: 72 P: 10 WI: 202 QRS: -51 QRSD: 177 T: 121 QT: 460 QTc: 506 Interpretive Statements SINUS RHYTHM LEFT AXIS DEVIATION BORDERLINE AV CONDUCTION DELAY POSSIBLE LEFT ATRIAL ENLARGEMENT LEFT BUNDLE BRANCH BLOCK BASELINE ARTIFACT- I, II, III, AVR, AVL, AVF ABNORMAL ECG No previous ECG available for comparison Electronically Signed On 07-31-2024 06:37:42 CDT by Ozzy Georges D.O.
[2024-07-30] MEDS: MORPHINE SULFATE (*CRX) 2 MG/ML INJ IV PUSH (21:18)
[2024-07-30] MEDS: ONDANSETRON INJ 4 MG/2 ML VIAL IV PUSH (21:19)
[2024-07-30 21:23] LABS: Basophils Percent Auto 0.1 % (0.2-1.2); Eosinophils Percent Auto 0.1 % (0-4.4); Hematocrit 41.1 % (37.0-47.0); Hemoglobin 13.9 g/dL (12.0-15.0); Immature Granulocyte Absolute 0.01 K/mm3 (0.00-0.031); Immature Granulocyte Percent A 0.1 % (0-0.5); Lymphocytes Absolute Auto 0.92 K/mm3 (0.9-3.2); Lymphocytes Percent Auto 13.4 % (18.3-44.2); Mean Corpuscular HGB Conc 33.8 g/dl (32-36); Mean Corpuscular Hemoglobin 31.5 pg (26-34); Mean Corpuscular Volume 93.2 fl (80-100); Mean Platelet Volume 9.9 fl (7.4-10.4); Monocytes Absolute Auto 0.8 K/mm3 (0.1-0.6); Monocytes Percent Auto 11.2 % (2.6-8.5); Neutrophils Absolute Auto 5.1 K/mm3 (1.3-6.7); Neutrophils Percent Auto 75.1 % (45.5-73.1); Platelet Count Result 258 k/mm3 (150-375); Red Blood Count 4.41 M/mm3 (4.2-5.4); Red Cell Distribution Width 12.4 % (11.5-14.5); White Blood Count 6.9 K/mm3 (4.5-10.0)
[2024-07-30 21:33] LABS: Alanine Aminotransferase 45 U/L (6-35); Albumin Level 4.6 g/dL (3.5-5.1); Alkaline Phosphatase 96 U/L (38-126); Anion Gap 11 mmol/L (4-12); Aspartate Amino Transferase 52 U/L (14-36); Bilirubin,Total 0.9 mg/dL (0.2-1.3); Blood Urea Nitrogen 39 mg/dL (7-17); Calcium 10.6 mg/dL (8.4-10.2); Carbon Dioxide 29 mmol/L (22-30); Chloride 91 mmol/L (98-107); Estimated CRCL calculation 17 ml/min; Estimated Glomerular Filt Rate 29; Glucose 105 mg/dL (65-110); INR 2.5; Lipase 129 U/L (23-300); Magnesium 1.8 mg/dL (1.6-2.3); Prothrombin Time 26.9 Seconds (11.1-14.7); Sodium 131 mmol/L (137-145)
[2024-07-30 21:34] LABS: Partial Thromboplastin Time 38.9 Seconds (22.3-36.8)
[2024-07-30 21:44] LABS: D Dimer 0.59 ug/mL (<0.48)
[2024-07-30 21:47] LABS: NT Pro B Type Natriuretic Pept 883 pg/mL (19.9-100); Troponin I 0.031 ng/mL (0.000-0.034)
[2024-07-31] VITALS (38 sets, daily range): BP systolic 117–151; BP diastolic 42–89; PULSE 51–80; RESP 12–20; TEMP 36.4–36.8; O2SAT 91–100; BMI 21.5
--- NOTE | 2024-07-31 00:07 | PC.NURSE ---
Pt to CT at this time.
[2024-07-31] MEDS: FUROSEMIDE INJ 40 MG/4 ML VIAL 20 MG IV PUSH (00:17)
[2024-07-31] MEDS: SODIUM CHLORIDE 0.9% IV 500 ML IV CONT (00:17)
[2024-07-31 00:26] LABS: Troponin I 0.033 ng/mL (0.000-0.034)
--- NOTE | 2024-07-31 00:47 | ECG_ITS ---
Test Date: 2024-07-31 00:53:41 Measurements Intervals [place] Rate: 66 P: 67 AR: 227 QRS: -55 QRSD: 178 T: 117 QT: 478 QTc: 503 Interpretive Statements SINUS RHYTHM WITH FIRST DEGREE AV BLOCK LEFT AXIS DEVIATION LEFT BUNDLE BRANCH BLOCK BASELINE ARTIFACT- I, II, III, AVR, AVL, AVF ABNORMAL ECG Compared to ECG 07/30/2024 20:42:04 NO SIGNIFICANT CHANGE Electronically Signed On 07-31-2024 06:38:12 CDT by Ozzy Georges D.O.
[2024-07-31 03:06] LABS: Add Urine Microscopic? YES; Appearance Urine Clear (Clear); Bacteria Urine 4+ /hpf; Bilirubin Urine Negative (Negative); Blood Urine Negative (Negative); Color Urine Yellow (Yellow); Glucose Urine UA Negative (Negative); Ketones Urine Negative (Negative); Leukocyte Esterase Ur Negative LEU/UL (Negative); Nitrate Urine Positive (Negative); Protein Urine Negative (Negative); RBC Urine 0-2 /hpf (0-2); Squamous Epithelial Cell Urine None Seen /hpf (Few); Urobilinogen Urine 0.2 mg/dL (<2.0); WBC Urine 0-5 /hpf (0-3)
[2024-07-31] MEDS: CEPHALEXIN 500 MG CAPSULE PO (04:17)
--- NOTE | 2024-07-31 05:37 | ADMGEN ---
This patient, Mervat Escobedo, was admitted to Medical Room 346-01. Patient/family oriented to hospital policies and general routines including ID bracelet, bed and alarms, visiting hours, pain management, procedures, bathroom and other care routines, personal items, smoking policy, room service/diet, and visiting hours. Information on how to activate the Rapid Response Team has been discussed. Patient/Family are encouraged to report perceived risks to care and to ask questions if they do not understand what they are told or what they should do.
[2024-07-31] MEDS: SODIUM CHLORIDE 0.9% IV 1,000 ML 125 ML IV CONT (05:57)
--- NOTE | 2024-07-31 08:35 | PM.IMHP ---
H&P: HPI History of Present Illness Date/Time: 07/31/24 08:35 Chief Complaint: Abdominal pain, nausea, vomiting Narrative: This is an 84-year-old female a past history significant for hypertension, atrial fibrillation on Xarelto, osteoporosis and osteoarthritis who presented to the emergency room after 5 days of nausea and vomiting. The patient provides the following history. Approximately 5 days ago she was eating a large piece chicken and swallowed it without thoroughly chewing. She had food stuck in her esophagus. She has been unable to eat or drink much of anything for the last few days given her persistent vomiting. Her abdominal pain is midline and mainly located mid epigastrium but she also has some suprapubic discomfort. She is not passing any flatus. She reports passing a small stool yesterday. She states she has difficulty moving her bones frequently does not pass a bowel movement for up to 6 days. She takes Colace but it does not seem to help. He she has to strain frequently resulting in external hemorrhoids. She does have a history of abdominal surgery I he is she is had a cholecystectomy and hysterectomy in the past. She reports she has never had symptoms like this before and has never had a small bowel obstruction. In the emergency room labs were significant for white blood cells 6.9, hemoglobin 13.9, PTT 26.9, INR 2.5, APTT 30.9, D-dimer 0.5 high Ki sodium 137, potassium 3.9, chloride 93, BUN 44, creatinine 1.60, AST 55, ALT 47, and BNP 883. Urinalysis showed yellow clear urine with positive nitrates and 4+ bacteria. Urine culture pending. Chest x-ray showed no acute cardiopulmonary disease. CT of the neck and soft tissues was ordered because the patient thought she had food stuck in her esophagus, this testing was negative. CT of abdomen pelvis showed small-bowel obstruction with transition point in the right lower quadrant with 1.6 cm indeterminate left adrenal nodule (MRI follow up recommended). EKG showed sinus rhythm with first-degree AV block rate of 66. NG tube was placed to low intermittent wall suction. In the ED patient received 500 mL of normal saline, Lasix 20 mg IV push, and oral Keflex 500 mg. She was admitted to the medical floor with general surgery consultation with small-bowel obstruction. 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 Essential (primary) hypertension Heart murmur History of breast cancer HLD (hyperlipidemia) Hypothyroidism IFG (impaired fasting glucose) OAB (overactive bladder) Osteoarthritis of both knees Osteopenia Paroxysmal A-fib Vitamin D deficiency, unspecified Surgical History Surgical History History of cholecystectomy History of hysterectomy History of lumpectomy History of tubal ligation Vaginal prolapse Family History Family History Sibling Family history of throat cancer Mother Acute myocardial infarction Other Diabetes mellitus Family history of arthritis Family history of coronary artery disease Family history of diabetes mellitus in first degree relative Social History Social History Social History: Smoking status: Never smoker Second hand tobacco smoke exposure: Yes Alcohol intake: never Substance use: never Substance use type: does not use Do You Feel Safe in your Home?: Yes Lack of Transportation: No Lack of Food: Never True Current Housing: I Have Housing Concerned About Future Housing: No Difficulty Paying Gas/Electric Bills: YES Difficulty Paying for Meds: No Currently Unemployed: No Education: High School Diploma/GED Difficulty w/ Childc
[2024-07-31] MEDS: ENOXAPARIN 30 MG/0.3 ML SYRINGE SUB-Q (08:57)
[2024-07-31 09:25] LABS: Alanine Aminotransferase 47 U/L (6-35); Albumin Level 4.1 g/dL (3.5-5.1); Alkaline Phosphatase 78 U/L (38-126); Anion Gap 12 mmol/L (4-12); Aspartate Amino Transferase 55 U/L (14-36); Bilirubin,Total 1.1 mg/dL (0.2-1.3); Blood Urea Nitrogen 44 mg/dL (7-17); Calcium 9.8 mg/dL (8.4-10.2); Carbon Dioxide 29 mmol/L (22-30); Chloride 93 mmol/L (98-107); Estimated CRCL calculation 19 ml/min; Estimated Glomerular Filt Rate 31; Glucose 85 mg/dL (65-110); Magnesium 1.7 mg/dL (1.6-2.3); Potassium 3.9 mmol/L (3.4-5.0); Sodium 134 mmol/L (137-145)
--- NOTE | 2024-07-31 10:06 | PM.CNGS ---
Assessment and Plan Assessment and plan (1) Small bowel obstruction: Code(s): K56.609 - Unspecified intestinal obstruction, unspecified as to partial versus complete obstruction Status: Acute Assessment and Plan: Nasogastric tube in good position. Patient still has distended abdomen but is feeling better than when she came into the emergency room. I explained to the patient that usually small intestinal obstructions resolve with her current treatment and there is no need for surgery. I explained also that if surgery is needed, she would be in the hospital several days after the surgery with a nasogastric tube. After discharge, she would probably need 4-6 weeks of recovery. She has not had a small-bowel obstruction in the past. I will follow her with exam, laboratory, daily abdominal imaging. Thank you for asking me to see this patient in consultation. (2) Paroxysmal A-fib: Code(s): I48.0 - Paroxysmal atrial fibrillation Status: Chronic Assessment and Plan: Will restart some of her p.o. meds to avoid recurrent atrial fib (3) Current use of [facility] anticoagulation: Code(s): Z79.01 - [facility] (current) use of anticoagulants Status: Chronic Assessment and Plan: Takes Xarelto which is currently on hold. History of Present Illness Consult details Consult date: 07/31/24 Reason for consult: other (Vomiting, chest and abdominal pain) Requesting physician: Georgi Dodd MD Narrative: Patient is an 84-year-old woman who has a previous history of cholecystectomy and hysterectomy. She reports that she had a chicken finger Saturday night, July 26, and since the following morning, she has felt that she had something stuck in the back of her throat. She also reports that she has not been able to keep anything down and has been vomiting. She has also had some shortness of breath and chest pain as well as lower abdominal pain. She had a CT scan of the neck into chest x-ray in the emergency room. Both of these were negative for any retained foreign body or acute cardiopulmonary process. She had a CT scan of the abdomen and pelvis which showed multiple loops of dilated small bowel with evidence of a small-bowel obstruction. The transition point appeared to be in the right lower quadrant. She has been admitted to the hospitalist service. I was asked to see the patient in consultation. A nasogastric tube has been placed and KUB shows that it is in good position. Patient was seen this morning about 7:00 a.m.. She is still having some abdominal pain but it is improved. No more nausea and no chest pain. Review of Systems Review of Systems: All systems reviewed & are unremarkable except as noted in HPI and below (HPI and those items noted below) Constitutional: Constitutional: Denies chills and Denies fever(s) Cardiovascular: Cardiovascular: Denies chest pain, Denies diaphoresis, Denies dyspnea and Denies paroxysmal nocturnal dyspnea Respiratory: Respiratory: Denies chest congestion, Denies cough and Denies dyspnea Integumentary/Breasts: Skin/Breast: Denies lesions and Denies rash PMFSH Past Medical History Medical History (Updated 07/31/24 @ 10:23 by Mk Paula MD) Current use of [facility] anticoagulation Essential (primary) hypertension Heart murmur History of breast cancer HLD (hyperlipidemia) Hypothyroidism IFG (impaired fasting glucose) OAB (overactive bladder) Osteoarthritis of both knees Osteopenia Paroxysmal A-fib Vitamin D deficiency, unspecified Surgical History Surgical History History of cholecystectomy History of hysterectomy History of lumpectomy History of tubal ligation Vaginal prolapse Family History Family History Sibling Family history of throat cancer Mother Acute myocardial infarction Other Diabetes mellitus Family history of art
[2024-07-31] MEDS: METOPROLOL TARTRATE 12.5 MG TABLET PO ×2 (10:47→20:27)
[2024-07-31] MEDS: NIFEdipine 30 MG TAB.ER.24 PO (10:47)
[2024-07-31] MEDS: AMIODARONE HCL 200 MG TABLET PO (10:47)
[2024-07-31] MEDS: FAMOTIDINE 20 MG/2 ML VIAL IV PUSH ×2 (10:47→20:27)
[2024-07-31] MEDS: KCL 20 MEQ/D5/0.9% SOD CHL 1,000 ML 100 ML IV CONT ×2 (10:47→23:42)
[2024-07-31] MEDS: cefTRIAXone 2 GM/NS 100 ML 2 GM/100 ML BAG IVPB (15:06)
[2024-08-01 05:20] LABS: Hematocrit 33.1 % (37.0-47.0); Mean Corpuscular HGB Conc 33.2 g/dl (32-36); Mean Corpuscular Hemoglobin 31.7 pg (26-34); Mean Corpuscular Volume 95.4 fl (80-100); Platelet Count Result 206 k/mm3 (150-375); Red Blood Count 3.47 M/mm3 (4.2-5.4); Red Cell Distribution Width 12.5 % (11.5-14.5); White Blood Count 5.1 K/mm3 (4.5-10.0)
[2024-08-01 05:38] LABS: Anion Gap 5 mmol/L (4-12); Blood Urea Nitrogen 31 mg/dL (7-17); Calcium 9.3 mg/dL (8.4-10.2); Carbon Dioxide 26 mmol/L (22-30); Chloride 104 mmol/L (98-107); Estimated CRCL calculation 22 ml/min; Estimated Glomerular Filt Rate 36; Glucose 110 mg/dL (65-110); Potassium 3.6 mmol/L (3.4-5.0); Sodium 135 mmol/L (137-145)
[2024-08-01 06:00] VITALS: BP 126/77; PULSE 60; RESP 18; TEMP 36.5; O2SAT 96
[2024-08-01 08:29] VITALS: PULSE 60
[2024-08-01] MEDS: METOPROLOL TARTRATE 12.5 MG TABLET PO ×2 (08:29→20:24)
[2024-08-01] MEDS: ENOXAPARIN 30 MG/0.3 ML SYRINGE SUB-Q (08:29)
[2024-08-01] MEDS: AMIODARONE HCL 200 MG TABLET PO (08:29)
[2024-08-01] MEDS: FAMOTIDINE 20 MG/2 ML VIAL IV PUSH ×2 (08:30→20:24)
[2024-08-01] MEDS: NIFEdipine 30 MG TAB.ER.24 PO (08:30)
--- NOTE | 2024-08-01 08:50 | PM.PNGS ---
Progress Note: A&P Assessment and Plan (1) Small bowel obstruction: Code(s): K56.609 - Unspecified intestinal obstruction, unspecified as to partial versus complete obstruction Status: Acute Assessment and Plan: Abdominal pain gone and has had bowel movement. Has bowel sounds on exam. Plain films suggest persistent small bowel obstruction. Will get water-soluble contrast small-bowel series this morning. If has adequate transit time and no sign of obstruction, can DC NG tube and start liquids today. (2) Current use of shelter anticoagulation: Code(s): Z79.01 - terminal block assembler (current) use of anticoagulants Status: Chronic Assessment and Plan: Continue to hold Xarelto (3) Paroxysmal A-fib: Code(s): I48.0 - Paroxysmal atrial fibrillation Status: Chronic Assessment and Plan: In sinus rhythm, no tachycardia Subjective Subjective Date/Time Seen: 08/01/24 08:50 Patient reports: feels better, pain is less (No abdominal pain), voiding w/o difficulty, bowel movement and afebrile Review of Systems Review of Systems: All systems reviewed & are unremarkable except as noted in HPI and below (HPI) Exam Const: General: comfortable and no acute distress Orientation/consciousness: patient oriented x3 GI: Inspection: normal to inspection and scar GI Palp: Yes Soft to palpation, No Tenderness to palpation present (GI), No Guarding due to palpation present (GI) and No Rebound tenderness present Auscultation: normal bowel sounds Neuro: General: patient oriented x3 and no focal motor deficits Extrem: General: no calf tenderness and no edema Psych: Affect: normal affect Insight: Good insight present (Psych) Judgement: Good judgement present (Psych) Objective Data Vital Signs Vital Signs: Vital Signs - 24 hr 07/31/24 09:00 07/31/24 14:32 07/31/24 20:27 Temperature 36.7 C Pulse Rate 51 L 56 L Respiratory Rate 16 Blood Pressure 141/59 H Pulse Oximetry 100 Oxygen Delivery Room Air 07/31/24 21:57 08/01/24 06:00 08/01/24 08:29 Temperature 36.8 C 36.5 C Pulse Rate 60 60 60 Respiratory Rate 18 18 Blood Pressure 125/51 L 126/77 Pulse Oximetry 94 96 Oxygen Delivery 08/01/24 08:29 Temperature Pulse Rate 60 Respiratory Rate Blood Pressure Pulse Oximetry Oxygen Delivery Intake/Output Intake/Output: Intake & Output 07/29/24 07/30/24 07/31/24 08/01/24 23:59 23:59 23:59 23:59 Intake Total 2210 Output Total 1050 50 Balance 1160 -50 Meds/Results Medications: Active Medications Generic Name Dose Route Start Last Admin Trade Name Freq PRN Reason Stop Dose Admin Amiodarone HCl 200 mg 07/31/24 10:05 08/01/24 08:29 Amiodarone Hcl 200 Mg Tablet PO 200 mg DAILY DILCIA Administration Enoxaparin Sodium 30 mg 07/31/24 09:00 08/01/24 08:29 Enoxaparin 30 Mg/0.3 Ml Syringe SUB-Q 30 mg DAILY DILCIA Administration Famotidine 20 mg 07/31/24 10:05 08/01/24 08:30 Famotidine 20 Mg/2 Ml Vial IV PUSH 20 mg Q12HR DILCIA Administration Potassium Chloride/Dextrose/Sod Cl 1,000 mls @ 100 mls/hr 07/31/24 09:55 07/31/24 23:42 Kcl 20 Meq/D5/0.9% Sod Chl IV CONT 100 mls/hr .Q10H DILCIA Administration Ceftriaxone Sodium 2 gm in 100 mls @ 200 mls/hr 07/31/24 15:00 07/31/24 15:36 Rocephin 2 Gm/Ns 100 Ml IVPB Infused Q24H DILCIA Infusion Metoprolol Tartrate 12.5 mg 07/31/24 10:05 08/01/24 08:29 Metoprolol Tartrate 12.5 Mg Tablet PO 12.5 mg Q12HR DILCIA Administration Nifedipine 30 mg 07/31/24 10:05 08/01/24 08:30 Nifedipine 30 Mg Tab.Er.24 PO 30 mg DAILY DILCIA Administration Ondansetron HCl 4 mg 07/31/24 04:40 Ondansetron Inj 4 Mg/2 Ml Vial IV PUSH Q4H PRN Nausea Triamcinolone Acetonide 1 applic 07/31/24 09:59 Triamcinolone Acet 0.1% Cream 15 Gm Tube TOPICAL DAILY PRN itching Radiology Results: ITS Impressions Chest X-Ray 07/30/24 20:57 IMPR
--- NOTE | 2024-08-01 09:02 | P.PNIM_ITS ---
Progress Note: A&P Assessment and Plan (1) Small bowel obstruction: Code(s): K56.609 - Unspecified intestinal obstruction, unspecified as to partial versus complete obstruction Status: Acute Assessment and Plan: Patient reports abdominal pain, nausea, and vomiting * NG tube placed to low intermittent wall suction * IVF D5NS with 20 K+ at 100 ml per hour * Surgery okay with PO meds and clamping tube * awaiting return of bowel function * She will need bowel regimen eventually as she has chronic constipation * NG with 300 ml out in the last 24 hours * Water soluble small bowel follow through showed normal transit time and no obstruction * Full liquid diet tonight (2) AJAY (acute kidney injury): Code(s): N17.9 - Acute kidney failure, unspecified Status: Acute Assessment and Plan: AJAY on CKD, Lab trend shows Cr 1.32-1.4 * Cr on admission is 1.7-->1.4 today * IVF * trend BMP (3) Paroxysmal A-fib: Code(s): I48.0 - Paroxysmal atrial fibrillation Status: Chronic Assessment and Plan: On amiodarone 200 mg daily and Metoprolol 12.5 mg PO BID. On Xarelto. * Xarelto currently on hold in case she needs surgery * Lovenox for DVT prophylaxis (4) Essential (primary) hypertension: Code(s): I10 - Essential (primary) hypertension Status: Acute Assessment and Plan: On Nifedipine 30 mg daily, metoprolol 12.5 mg PO BID, and amiloride- hydrochlorothiazide daily * PO medications are resumed-clamping NG tube after administration * Monitor BP trend (5) Urinary tract infection: Code(s): N39.0 - Urinary tract infection, site not specified Status: Acute Assessment and Plan: U/A with + nitrates and +4 bacteria. Patient is having suprapubic discomfort. * Urine culture pending * Rocephin added Plan DVT prophylaxis: Lovenox Glycemic control: NA Code Status: Full Code Disposition: 84 year old female presents to the hospital with complaints of abdominal pain, nausea, and vomiting. NG tube was placed to LIWS. She is on antibiotics for UTI. General surgery is consulted and recs are appreciated. Medication reconciliation obtained via the following: Nurse completed on admission The file time of this note does not necessarily represent the time the patient was seen. Subjective Date/time seen: 08/01/24 09:02 Interval history: This is an 84-year-old female a past history significant for hypertension, atrial fibrillation on Xarelto, osteoporosis and osteoarthritis who presented to the emergency room after 5 days of nausea and vomiting. 08/01: No acute events overnight. She is feeling better today. She denies a bdominal pain and is passing some flatus. Review of Systems Review of Systems: All systems reviewed & are unremarkable except as noted in HPI and below Exam Narrative: General: well appearing, thin, frail, appears stated age. HEENT: normocephalic, atraumatic. Mucous membranes moist. EOMI, PERRLA, bilateral sclera anicteric, no conjunctival injection. Neck supple without JVD, lymphadenopathy, or bruit. Respiratory: clear to auscultation bilaterally. No rales/rhonic/wheezes. Cardiovascular: Regular rate and rhythm, normal S1-S2 upon auscultation. No murmurs, rubs, or clicks. PMI is nondisplaced, capillary refill less than 3 se cond. Abdomen: Soft, round, no pulsatile masses, slightly distended and nonte
--- NOTE | 2024-08-01 09:02 | PM.IMPN ---
Progress Note: A&P Assessment and Plan (1) Small bowel obstruction: Code(s): K56.609 - Unspecified intestinal obstruction, unspecified as to partial versus complete obstruction Status: Acute Assessment and Plan: Patient reports abdominal pain, nausea, and vomiting NG tube placed to low intermittent wall suction IVF D5NS with 20 K+ at 100 ml per hour Surgery okay with PO meds and clamping tube awaiting return of bowel function She will need bowel regimen eventually as she has chronic constipation NG with 300 ml out in the last 24 hours Water soluble small bowel follow through showed normal transit time and no obstruction Full liquid diet tonight (2) AJAY (acute kidney injury): Code(s): N17.9 - Acute kidney failure, unspecified Status: Acute Assessment and Plan: AJAY on CKD, Lab trend shows Cr 1.32-1.4 Cr on admission is 1.7-->1.4 today IVF trend BMP (3) Paroxysmal A-fib: Code(s): I48.0 - Paroxysmal atrial fibrillation Status: Chronic Assessment and Plan: On amiodarone 200 mg daily and Metoprolol 12.5 mg PO BID. On Xarelto. Xarelto currently on hold in case she needs surgery Lovenox for DVT prophylaxis (4) Essential (primary) hypertension: Code(s): I10 - Essential (primary) hypertension Status: Acute Assessment and Plan: On Nifedipine 30 mg daily, metoprolol 12.5 mg PO BID, and amiloride-hydrochlorothiazide daily PO medications are resumed-clamping NG tube after administration Monitor BP trend (5) Urinary tract infection: Code(s): N39.0 - Urinary tract infection, site not specified Status: Acute Assessment and Plan: U/A with + nitrates and +4 bacteria. Patient is having suprapubic discomfort. Urine culture pending Rocephin added Plan DVT prophylaxis: Lovenox Glycemic control: NA Code Status: Full Code Disposition: 84 year old female presents to the hospital with complaints of abdominal pain, nausea, and vomiting. NG tube was placed to LIWS. She is on antibiotics for UTI. General surgery is consulted and recs are appreciated. Medication reconciliation obtained via the following: Nurse completed on admission The file time of this note does not necessarily represent the time the patient was seen. Subjective Date/time seen: 08/01/24 09:02 Interval history: This is an 84-year-old female a past history significant for hypertension, atrial fibrillation on Xarelto, osteoporosis and osteoarthritis who presented to the emergency room after 5 days of nausea and vomiting. 08/01: No acute events overnight. She is feeling better today. She denies abdominal pain and is passing some flatus. Review of Systems Review of Systems: All systems reviewed & are unremarkable except as noted in HPI and below Exam Narrative: General: well appearing, thin, frail, appears stated age. HEENT: normocephalic, atraumatic. Mucous membranes moist. EOMI, PERRLA, bilateral sclera anicteric, no conjunctival injection. Neck supple without JVD, lymphadenopathy, or bruit. Respiratory: clear to auscultation bilaterally. No rales/rhonic/wheezes. Cardiovascular: Regular rate and rhythm, normal S1-S2 upon auscultation. No murmurs, rubs, or clicks. PMI is nondisplaced, capillary refill less than 3 second. Abdomen: Soft, round, no pulsatile masses, slightly distended and nontender. No rebound, no guarding. No CVA tenderness, no hepatosplenomegaly. Bowel sounds hypoactive to all four quadrants. No high pitch or tinkling sounds, resonant to percussion. Extremities: No cyanosis, clubbing, or edema present. Pulses are palpable 2/2. Active ROM to all four extremities. Neuro: Alert and orientated x 4. PERRLA. Cranial nerves 2-12 intact without focal deficit. Skin: Warm, dry, and intact, without rash, erythema, or lesion. Nona
--- NOTE | 2024-08-01 13:08 | PC.NURSE ---
Pt was going to the bathroom. Forgot NG tube was taped to gown and pulled NG out. Called Dr. Paula and he said to go ahead and leave NG out and start pt on full liquids.
[2024-08-01] MEDS: KCL 20 MEQ/D5/0.9% SOD CHL 1,000 ML 100 ML IV CONT (14:12)
[2024-08-01] MEDS: cefTRIAXone 2 GM/NS 100 ML 2 GM/100 ML BAG IVPB (15:16)
[2024-08-01 15:55] VITALS: BP 167/56; PULSE 63; RESP 19; TEMP 36.9; O2SAT 93
[2024-08-01] MEDS: ACETAMINOPHEN 500 MG TABLET PO (16:44)
[2024-08-01 20:24] VITALS: PULSE 56
[2024-08-01 22:00] VITALS: BP 155/61; PULSE 66; RESP 18; TEMP 36.6; O2SAT 98
[2024-08-02] MEDS: KCL 20 MEQ/D5/0.9% SOD CHL 1,000 ML 100 ML IV CONT (00:25)
[2024-08-02 05:10] LABS: Hematocrit 31.1 % (37.0-47.0); Hemoglobin 10.1 g/dL (12.0-15.0); Mean Corpuscular HGB Conc 32.5 g/dl (32-36); Mean Corpuscular Hemoglobin 31.3 pg (26-34); Mean Corpuscular Volume 96.3 fl (80-100); Mean Platelet Volume 9.4 fl (7.4-10.4); Platelet Count Result 194 k/mm3 (150-375); Red Blood Count 3.23 M/mm3 (4.2-5.4); Red Cell Distribution Width 12.6 % (11.5-14.5); White Blood Count 5.1 K/mm3 (4.5-10.0)
[2024-08-02 05:25] LABS: Anion Gap 5 mmol/L (4-12); Blood Urea Nitrogen 17 mg/dL (7-17); Calcium 9.2 mg/dL (8.4-10.2); Carbon Dioxide 27 mmol/L (22-30); Chloride 110 mmol/L (98-107); Estimated CRCL calculation 28 ml/min; Estimated Glomerular Filt Rate 48; Glucose 107 mg/dL (65-110); Potassium 3.4 mmol/L (3.4-5.0); Sodium 142 mmol/L (137-145)
[2024-08-02 06:00] VITALS: BP 153/59; PULSE 51; RESP 18; TEMP 36.5; O2SAT 98
--- NOTE | 2024-08-02 09:23 | PM.IMPN ---
Progress Note: A&P Assessment and Plan (1) Small bowel obstruction: Code(s): K56.609 - Unspecified intestinal obstruction, unspecified as to partial versus complete obstruction Status: Acute Assessment and Plan: Patient reports abdominal pain, nausea, and vomiting NG tube placed to low intermittent wall suction IVF D5NS with 20 K+ at 100 ml per hour Surgery okay with PO meds and clamping tube awaiting return of bowel function She will need bowel regimen eventually as she has chronic constipation NG with 300 ml out in the last 24 hours Water soluble small bowel follow through showed normal transit time and no obstruction Full liquid diet tonight RESOLVED (2) AJAY (acute kidney injury): Code(s): N17.9 - Acute kidney failure, unspecified Status: Acute Assessment and Plan: AJAY on CKD, Lab trend shows Cr 1.32-1.4 Cr on admission is 1.7-->1.4 today IVF trend BMP (3) Paroxysmal A-fib: Code(s): I48.0 - Paroxysmal atrial fibrillation Status: Chronic Assessment and Plan: On amiodarone 200 mg daily and Metoprolol 12.5 mg PO BID. On Xarelto. Xarelto currently on hold in case she needs surgery Lovenox for DVT prophylaxis (4) Essential (primary) hypertension: Code(s): I10 - Essential (primary) hypertension Status: Acute Assessment and Plan: On Nifedipine 30 mg daily, metoprolol 12.5 mg PO BID, and amiloride-hydrochlorothiazide daily PO medications are resumed-clamping NG tube after administration Monitor BP trend (5) Urinary tract infection: Code(s): N39.0 - Urinary tract infection, site not specified Status: Acute Assessment and Plan: U/A with + nitrates and +4 bacteria. Patient is having suprapubic discomfort. Urine culture pending Rocephin added Plan DVT prophylaxis: Lovenox Glycemic control: NA Code Status: Full Code Disposition: 84 year old female presents to the hospital with complaints of abdominal pain, nausea, and vomiting. NG tube was placed to LIWS. She is on antibiotics for UTI. General surgery is consulted and recs are appreciated. Medication reconciliation obtained via the following: Nurse completed on admission The file time of this note does not necessarily represent the time the patient was seen. Subjective Date/time seen: 08/02/24 09:23 Interval history: This is an 84-year-old female a past history significant for hypertension, atrial fibrillation on Xarelto, osteoporosis and osteoarthritis who presented to the emergency room after 5 days of nausea and vomiting. 08/01: No acute events overnight. She is feeling better today. She denies abdominal pain and is passing some flatus. 08/02: Doing well today. Tolerating a diet. Plan for discharge tomorrow Review of Systems Review of Systems: All systems reviewed & are unremarkable except as noted in HPI and below Exam Narrative: General: well appearing, thin, frail, appears stated age. HEENT: normocephalic, atraumatic. Mucous membranes moist. EOMI, PERRLA, bilateral sclera anicteric, no conjunctival injection. Neck supple without JVD, lymphadenopathy, or bruit. Respiratory: clear to auscultation bilaterally. No rales/rhonic/wheezes. Cardiovascular: Regular rate and rhythm, normal S1-S2 upon auscultation. No murmurs, rubs, or clicks. PMI is nondisplaced, capillary refill less than 3 second. Abdomen: Soft, round, no pulsatile masses, slightly distended and nontender. No rebound, no guarding. No CVA tenderness, no hepatosplenomegaly. Bowel sounds hypoactive to all four quadrants. No high pitch or tinkling sounds, resonant to percussion. Extremities: No cyanosis, clubbing, or edema present. Pulses are palpable 2/2. Active ROM to all four extremities. Neuro: Alert and orientated x 4. PERRLA. Cranial nerves 2-12 intact without
[2024-08-02] MEDS: ENOXAPARIN 30 MG/0.3 ML SYRINGE SUB-Q (09:44)
[2024-08-02 09:45] VITALS: PULSE 56
[2024-08-02] MEDS: METOPROLOL TARTRATE 12.5 MG TABLET PO ×2 (09:45→20:39)
[2024-08-02] MEDS: AMIODARONE HCL 200 MG TABLET PO (09:45)
[2024-08-02] MEDS: FAMOTIDINE 20 MG/2 ML VIAL IV PUSH (09:46)
[2024-08-02] MEDS: NIFEdipine 30 MG TAB.ER.24 PO (09:46)
--- NOTE | 2024-08-02 09:52 | PM.PNGS ---
Progress Note: A&P Assessment and Plan (1) Small bowel obstruction: Code(s): K56.609 - Unspecified intestinal obstruction, unspecified as to partial versus complete obstruction Status: Acute Assessment and Plan: Resolved. No plans for surgery. I will sign off. Would like to go home tomorrow which sounds reasonable. (2) Paroxysmal A-fib: Code(s): I48.0 - Paroxysmal atrial fibrillation Status: Chronic Assessment and Plan: Could continues regular heart rate (3) Current use of watermelon inspector anticoagulation: Code(s): Z79.01 - care home (current) use of anticoagulants Status: Chronic Assessment and Plan: Restart Xarelto today. Subjective Subjective Date/Time Seen: 08/02/24 09:52 Patient reports: no new complaints, feels better, pain is less (No abdominal pain), tolerating liquids well, voiding w/o difficulty, bowel movement, diarrhea (After water-soluble contrast small-bowel series) and afebrile Review of Systems Review of Systems: All systems reviewed & are unremarkable except as noted in HPI and below (HPI) Exam Const: General: comfortable and no acute distress Orientation/consciousness: patient oriented x3 GI: GI Palp: Yes Soft to palpation, Yes Tenderness to palpation present (GI), No Guarding due to palpation present (GI) and No Rebound tenderness present Neuro: General: patient oriented x3 and no focal motor deficits Extrem: General: no calf tenderness and no edema Psych: Affect: normal affect Insight: Good insight present (Psych) Judgement: Good judgement present (Psych) Objective Data Vital Signs Vital Signs: Vital Signs - 24 hr 08/01/24 15:55 08/01/24 20:24 08/01/24 22:00 Temperature 36.9 C 36.6 C Pulse Rate 63 56 L 66 Respiratory Rate 19 18 Blood Pressure 167/56 H 155/61 H Pulse Oximetry 93 98 08/02/24 06:00 08/02/24 09:45 08/02/24 09:45 Temperature 36.5 C Pulse Rate 51 L 56 L 56 L Respiratory Rate 18 Blood Pressure 153/59 H Pulse Oximetry 98 Intake/Output Intake/Output: Intake & Output 07/30/24 07/31/24 08/01/24 08/02/24 23:59 23:59 23:59 23:59 Intake Total 2210 1240 1480 Output Total 1050 50 Balance 1160 1190 1480 Meds/Results Medications: Active Medications Generic Name Dose Route Start Last Admin Trade Name Freq PRN Reason Stop Dose Admin Acetaminophen 500 mg 08/01/24 16:17 08/01/24 16:44 Acetaminophen 500 Mg Tablet PO 500 mg Q4H PRN Administration Mild Pain (1-3) or Fever Amiodarone HCl 200 mg 07/31/24 10:05 08/02/24 09:45 Amiodarone Hcl 200 Mg Tablet PO 200 mg DAILY DILCIA Administration Enoxaparin Sodium 30 mg 07/31/24 09:00 08/02/24 09:44 Enoxaparin 30 Mg/0.3 Ml Syringe SUB-Q 30 mg DAILY DILCIA Administration Ceftriaxone Sodium 2 gm in 100 mls @ 200 mls/hr 07/31/24 15:00 08/01/24 15:16 Rocephin 2 Gm/Ns 100 Ml IVPB 200 mls/hr Q24H DILCIA Administration Metoprolol Tartrate 12.5 mg 07/31/24 10:05 08/02/24 09:45 Metoprolol Tartrate 12.5 Mg Tablet PO 12.5 mg Q12HR DILCIA Administration Nifedipine 30 mg 07/31/24 10:05 08/02/24 09:46 Nifedipine 30 Mg Tab.Er.24 PO 30 mg DAILY DILCIA Administration Non-Formulary Medication 10 meq 08/02/24 12:00 Potassium Chloride PO 09/01/24 11:59 [facility] Non-Formulary Medication 1 tablet 08/03/24 09:00 Amiloride-Hydrochlorothiazide PO 09/02/24 08:59 [facility] Ondansetron HCl 4 mg 07/31/24 04:40 Ondansetron Inj 4 Mg/2 Ml Vial IV PUSH Q4H PRN Nausea Rivaroxaban 20 mg 08/02/24 09:50 Rivaroxaban 20 Mg Tablet PO DAILY [facility] Triamcinolone Acetonide 1 applic 07/31/24 09:59 Triamcinolone Acet 0.1% Cream 15 Gm Tube TOPICAL DAILY PRN itching Vitamin D 2,000 units 08/03/24 09:00 Cholecalciferol 1,000 Units Tablet PO DAILY [facility] Radiology Results: ITS Impressions Chest X-Ray 07/30/24 20:57 IMPRESSION: 1. No acute cardiopulmo
[2024-08-02] MEDS: aMILoride HCL 5 MG TABLET PO (10:27)
[2024-08-02] MEDS: RIVAROXABAN 20 MG TABLET PO (10:27)
[2024-08-02] MEDS: hydroCHLOROthiazide 25 MG TABLET 50 MG PO (10:27)
[2024-08-02] MEDS: CHOLECALCIFEROL 1,000 UNITS TABLET 2000 UNITS PO (10:27)
[2024-08-02] MEDS: POTASSIUM CHLORIDE 10 MEQ ER TABLET PO (12:52)
[2024-08-02] MEDS: cefTRIAXone 2 GM/NS 100 ML 2 GM/100 ML BAG IVPB (15:30)
[2024-08-02 17:18] VITALS: BP 146/51; PULSE 53; RESP 19; TEMP 36.4; O2SAT 100
--- NOTE | 2024-08-02 19:34 | PC.NURSE ---
IV catheter removed at 1800, patient reporting discomfort and tenderness. Per fiberglass pipe covering supervisor, ok to wait if placement of new access will be needed. Patient is scheduled to be discharged tomorrow and is receiving only oral medications.
[2024-08-02 20:39] VITALS: PULSE 58
[2024-08-02] MEDS: FAMOTIDINE 20 MG TABLET PO (20:39)
[2024-08-02 21:33] VITALS: BP 146/55; PULSE 59; RESP 16; TEMP 36.6; O2SAT 99
[2024-08-03 06:00] VITALS: BP 123/57; PULSE 57; RESP 16; TEMP 37.2; O2SAT 97
[2024-08-03 07:05] LABS: Hematocrit 32.1 % (37.0-47.0); Hemoglobin 10.6 g/dL (12.0-15.0); Mean Corpuscular Hemoglobin 31.6 pg (26-34); Mean Corpuscular Volume 95.8 fl (80-100); Mean Platelet Volume 10.1 fl (7.4-10.4); Platelet Count Result 207 k/mm3 (150-375); Red Blood Count 3.35 M/mm3 (4.2-5.4); Red Cell Distribution Width 12.7 % (11.5-14.5); White Blood Count 4.9 K/mm3 (4.5-10.0)
[2024-08-03 07:09] LABS: Potassium 3.5 mmol/L (3.4-5.0)
[2024-08-03 07:22] LABS: Anion Gap 4 mmol/L (4-12); Blood Urea Nitrogen 11 mg/dL (7-17); Calcium 9.4 mg/dL (8.4-10.2); Carbon Dioxide 28 mmol/L (22-30); Chloride 104 mmol/L (98-107); Estimated CRCL calculation 28 ml/min; Estimated Glomerular Filt Rate 48; Glucose 86 mg/dL (65-110); Potassium 3.6 mmol/L (3.4-5.0); Sodium 136 mmol/L (137-145)
[2024-08-03 08:54] VITALS: PULSE 62
[2024-08-03] MEDS: CHOLECALCIFEROL 1,000 UNITS TABLET 2000 UNITS PO (08:54)
[2024-08-03] MEDS: ENOXAPARIN 30 MG/0.3 ML SYRINGE SUB-Q (08:54)
[2024-08-03] MEDS: NIFEdipine 30 MG TAB.ER.24 PO (08:54)
[2024-08-03] MEDS: METOPROLOL TARTRATE 12.5 MG TABLET PO (08:54)
[2024-08-03] MEDS: RIVAROXABAN 20 MG TABLET PO (08:54)
[2024-08-03 08:55] VITALS: PULSE 62
[2024-08-03] MEDS: POTASSIUM CHLORIDE 10 MEQ ER TABLET PO (08:55)
[2024-08-03] MEDS: hydroCHLOROthiazide 25 MG TABLET 50 MG PO (08:55)
[2024-08-03] MEDS: FAMOTIDINE 20 MG TABLET PO (08:55)
[2024-08-03] MEDS: AMIODARONE HCL 200 MG TABLET PO (08:55)
[2024-08-03] MEDS: aMILoride HCL 5 MG TABLET PO (08:55)
[2024-08-03 13:19] VITALS: BP 152/51; PULSE 54; RESP 16; TEMP 36.2; O2SAT 100
--- NOTE | 2024-08-03 13:44 | PM.DS ---
DS: Admitting Diagnosis Discharge Date 08/03 Admitting Diagnosis abdominal pain DS: Discharge Diagnosis Discharge Diagnosis (1) Small bowel obstruction: Code(s): K56.609 - Unspecified intestinal obstruction, unspecified as to partial versus complete obstruction Status: Acute Assessment and Plan: Patient reports abdominal pain, nausea, and vomiting NG tube placed to low intermittent wall suction IVF D5NS with 20 K+ at 100 ml per hour Surgery okay with PO meds and clamping tube awaiting return of bowel function She will need bowel regimen eventually as she has chronic constipation NG with 300 ml out in the last 24 hours Water soluble small bowel follow through showed normal transit time and no obstruction Full liquid diet tonight RESOLVED (2) AJAY (acute kidney injury): Code(s): N17.9 - Acute kidney failure, unspecified Status: Acute Assessment and Plan: AJAY on CKD, Lab trend shows Cr 1.32-1.4 Cr on admission is 1.7-->1.4 today IVF trend BMP (3) Paroxysmal A-fib: Code(s): I48.0 - Paroxysmal atrial fibrillation Status: Chronic Assessment and Plan: On amiodarone 200 mg daily and Metoprolol 12.5 mg PO BID. On Xarelto. Xarelto currently on hold in case she needs surgery Lovenox for DVT prophylaxis (4) Essential (primary) hypertension: Code(s): I10 - Essential (primary) hypertension Status: Acute Assessment and Plan: On Nifedipine 30 mg daily, metoprolol 12.5 mg PO BID, and amiloride-hydrochlorothiazide daily PO medications are resumed-clamping NG tube after administration Monitor BP trend (5) Urinary tract infection: Code(s): N39.0 - Urinary tract infection, site not specified Status: Acute Assessment and Plan: U/A with + nitrates and +4 bacteria. Patient is having suprapubic discomfort. Urine culture pending Rocephin added Plan DVT prophylaxis: Lovenox Glycemic control: NA Code Status: Full Code Disposition: 84 year old female presents to the hospital with complaints of abdominal pain, nausea, and vomiting. NG tube was placed to LIWS. She is on antibiotics for UTI. General surgery is consulted and recs are appreciated. Medication reconciliation obtained via the following: Nurse completed on admission The file time of this note does not necessarily represent the time the patient was seen. DS: Summary Hospital Course Reason for hospitalization: partial small bowel obstruction Hospital Course: This is an 84-year-old female a past history significant for hypertension, atrial fibrillation on Xarelto, osteoporosis and osteoarthritis who presented to the emergency room after 5 days of nausea and vomiting. The patient provides the following history. Approximately 5 days ago she was eating a large piece chicken and swallowed it without thoroughly chewing. She had food stuck in her esophagus. She has been unable to eat or drink much of anything for the last few days given her persistent vomiting. Her abdominal pain is midline and mainly located mid epigastrium but she also has some suprapubic discomfort. She is not passing any flatus. She reports passing a small stool yesterday. She states she has difficulty moving her bones frequently does not pass a bowel movement for up to 6 days. She takes Colace but it does not seem to help. He she has to strain frequently resulting in external hemorrhoids. She does have a history of abdominal surgery I he is she is had a cholecystectomy and hysterectomy in the past. She reports she has never had symptoms like this before and has never had a small bowel obstruction. In the emergency room labs were significant for white blood cells 6.9, hemoglobin 13.9, PTT 26.9, INR 2.5, APTT 30.9, D-dimer 0.5 high Ki sodium 137, potassium 3.9, chloride 93, BUN 44,
== END 2024-08-03 13:53 | disposition home or self-care (01) | DRG 389 ==
LOC: ANHED 07-31 04:44 → ANH3MED 07-31 04:55
PROVIDERS: Surgery; Admitting Provider Internal Medicine; Emergency Provider Registered Nurse; PCP Family Medicine; Visit Provider Nurse Practitioner Acute Care
DX: K56.609 Unspecified intestinal obstruction, unspecified as to partial versus complete obstruction (principal); N17.9 Acute kidney failure, unspecified; N39.0 Urinary tract infection, site not specified; I48.0 Paroxysmal atrial fibrillation; I10 Essential (primary) hypertension; E78.5 Hyperlipidemia, unspecified; E03.9 Hypothyroidism, unspecified; E55.9 Vitamin D deficiency, unspecified; R73.01 Impaired fasting glucose; R01.1 Cardiac murmur, unspecified; N32.81 Overactive bladder; M17.9 Osteoarthritis of knee, unspecified; M81.0 Age-related osteoporosis without current pathological fracture; M85.80 Other specified disorders of bone density and structure, unspecified site; Z79.01 Long term (current) use of anticoagulants; Z85.3 Personal history of malignant neoplasm of breast
CPT/HCPCS: 36415; 70490; 71046; 74018; 74176; 74250; 80048; 80053; 81001; 83690; 83735; 83880; 84132; 84443; 84484; 85025; 85027; 85380; 85610; 85730; 87077; 87086; 87088; 87186; 93005; 96361; 96374; 96375; 99285; A9270; G0378; J0696; J1650; J1940; J2270; J2405; J3480; J7030; J7040

== ENCOUNTER 2024-10-26 09:22 | Outpatient (CLI) | payer MEDICARE, SELFPAY ==
--- NOTE | ~2024-10-26 | MM_ITS ---
EXAMINATION: MM screening [facility] BI w karlos HISTORY: Screening TECHNIQUE: Craniocaudal and mediolateral oblique 3-D tomosynthesis images were obtained and synthetic 2-D images were generated. CAD analysis was submitted and interpreted. COMPARISON: Comparison to multiple prior studies sequentially, with oldest reviewed study dated 03/10. BREAST PARENCHYMAL COMPOSITION: Not dense: There are scattered areas of fibroglandular density. FINDINGS: There is no evidence of suspicious mass, calcification, or architectural distortion to sugg est malignancy in either breast. There has been no suspicious interval change. IMPRESSION: 1. No mammographic evidence of malignancy. 2. Recommend routine screening mammography in one year. BI-RADS Category 1: Negative Reviewed, dictated and finalized at location B. ETBALL COMMENTATOR
--- NOTE | ~2024-10-26 | DEXA_ITS ---
Bone Density Report Name: ELVIA HAYES Age: 84 Sex: Female Ethnicity: White Date of : 1940 Indication: osteopenia; height loss; cancer; hysterectomy; Referring Provider: ALESSANDRA NOLAND Study: Bone densitometry was performed. Exam Date: October 26, 2024 Accession number: [id number] Bone Density: Region BMD T-score Z-score Classification AP Spine(L1, L2) 1.010 0.3 2.9 Normal Femoral Neck (Left) 0.578 -2.4 0.0 Osteopenia Total Hip (Left) 0.678 -2.2 0.0 Osteopenia Femoral Neck (Right) 0.548 -2.7 -0.3 Osteoporosis Total Hip (Right) 0.635 -2.5 -0.3 Osteoporosis Total Hip Mean 0.656 -2.4 -0.2 Osteopenia World Health Organization criteria for BMD impression classify patients as: Normal (T-score at or above -1.0), Osteopenia (T-score between -1.0 and -2.5), or Osteoporosis (T-score at or below -2.5). 10-year Fracture Risk: FRAX not reported because: Some T-score for Spine Total or Hip Total or Femoral Neck at or below -2.5 Previous Exams: Region Exam Age BMD T-score BMD Change BMD Change Date g/cm2 vs Baseline vs Previous AP Spine (L1-L2) 10/26/2024 84 1.010 0.3 0.098 (10.7%)* 0.008 (0.8%) 05/01/2022 81 1.002 0.2 0.090 (9.8%)* 0.090 (9.8%)* 04/23/2020 79 0.913 -0.6 Total Hip(Left) 10/26/2024 84 0.678 -2.2 -0.053 (-7.2%) -0.049 (-6.7%) 05/01/2022 81 0.726 -1.8 -0.004 (-0.5%) -0.004 (-0.5%) 04/23/2020 79 0.730 -1.7 Total Hip(Right) 10/26/2024 84 0.635 -2.5 -0.078 (-10.9% -0.030 (-4.5%) 05/01/2022 81 0.664 -2.3 -0.048 (-6.8%) -0.048 (-6.8%) 04/23/2020 79 0.713 -1.9 *Denotes significance at 95% confidence level, LSC for AP Spine = 0.022 g/cm2, LSC for Total Hip = 0.027 g/cm2 Clinical Information Provided by Patient: Has used the following medications: Vitamin D Has the following medical conditions: Cancer, Hysterectomy Patient maximum height was 62 Menopause Age: 52 No regular weight bearing exercise Does not regularly consume dairy products Drinks caffeinated beverages Onset of menses at age 14 Number of children 3 Impression: The patient has osteoporosis, based on the Right Femoral Neck T-score. The BMD for the Total Hip(Left) decreased, changing by -6.7% since the last DXA exam. The BMD for the Total Hip(Right) decreased, changing by -4.5% since the last DXA exam. Discussion: INCREASED RISK OF FRACTURE. BONE DENSITY IS UNDESIRABLY LOW AT ONE OR MORE SKELETAL SITES, CONSISTENT WITH POSTMENOPAUSAL OSTEOPOROSIS. This patient's lowest T-score meets the World Health Organization's (WHO) criteria for osteoporosis at one or more sites (T-score -2.5 or below). In untreated patients, the risk of osteoporotic fracture increases approximately two-fold for each 1.0 SD decrease in T-score. Low bone density is not the only risk factor for fracture; also consider factors such as patient's age, frailty or poor health, risk of falling, risk of injury, previous osteoporotic fracture, family history of osteoporosis, cigarette smoking, low body weight, etc. Not everyone with low bone mineral density has osteoporosis; osteomalacia and other metabolic bone disorders should also be considered. Patients who have osteoporosis should be evaluated for specific diseases and conditions (secondary causes) that may cause or contribute to bone loss. The [place] Association of Clinical Endocrinologists (AACE) and National Osteoporosis Foundation (NOF) recommend pharmacologic intervention for all postmenopausal women whose T-score is in this range. The patient should follow a healthful lifestyle (good nutrition with adequate calcium and vitamin D, and appropriate weight-bearing exercise). Follow-Up: Consider a repeat BMD and Vertebral Fracture Assessment (VFA) exam in 2 years or sooner if medically necessary, to reassess this patient's status. Reported by: CAMELIA on 10/26/2024 9:55:00 AM. Reviewed, dictated and finalized at location ASonali NELSON
== END 2024-10-26 09:23 | disposition home or self-care (01) ==
PROVIDERS: PCP Family Medicine; Visit Provider Family Medicine
DX: Z12.31 Encounter for screening mammogram for malignant neoplasm of breast (principal); M81.0 Age-related osteoporosis without current pathological fracture; M85.89 Other specified disorders of bone density and structure, multiple sites; Z78.0 Asymptomatic menopausal state
CPT/HCPCS: 77063; 77067; 77080

== ENCOUNTER 2024-12-16 10:53 | Outpatient (CLI) | payer MEDICARE, SELFPAY ==
--- NOTE | ~2024-12-16 | XR_ITS ---
Clinical Indication: Amiodarone therapy PA and lateral views of the chest: Comparison: 07/30/2024 Findings: The lungs are clear, aside from calcified left basilar granuloma, without evidence of focal consolidation or pleural effusion. Cardiomediastinal silhouette is within normal limits. Stable sco liotic change of the spine. Impression: No significant abnormality. Reviewed, dictated and finalized at location . ATIONS INTELLIGENCE SUPERINTENDENT Impression: No significant abnormality.
[2024-12-16 12:07] LABS: Basophils Percent Auto 0.4 % (0.2-1.2); Eosinophils Absolute Auto 0.2 K/mm3 (0-0.3); Eosinophils Percent Auto 3.3 % (0-4.4); Hematocrit 40.7 % (37.0-47.0); Hemoglobin 12.9 g/dL (12.0-15.0); Immature Granulocyte Absolute 0.01 K/mm3 (0.00-0.031); Immature Granulocyte Percent A 0.2 % (0-0.5); Lymphocytes Percent Auto 25.2 % (18.3-44.2); Mean Corpuscular HGB Conc 31.7 g/dl (32-36); Mean Corpuscular Hemoglobin 31.3 pg (26-34); Mean Corpuscular Volume 98.8 fl (80-100); Mean Platelet Volume 10.5 fl (7.4-10.4); Monocytes Absolute Auto 0.5 K/mm3 (0.1-0.6); Monocytes Percent Auto 9.3 % (2.6-8.5); Neutrophils Absolute Auto 3.2 K/mm3 (1.3-6.7); Neutrophils Percent Auto 61.6 % (45.5-73.1); Platelet Count Result 242 k/mm3 (150-375); Red Blood Count 4.12 M/mm3 (4.2-5.4); Red Cell Distribution Width 12.9 % (11.5-14.5); White Blood Count 5.2 K/mm3 (4.5-10.0)
[2024-12-16 12:15] LABS: Alanine Aminotransferase 20 U/L (6-35); Albumin Level 4.5 g/dL (3.5-5.1); Alkaline Phosphatase 108 U/L (38-126); Anion Gap 10 mmol/L (4-12); Aspartate Amino Transferase 29 U/L (14-36); Bilirubin,Total 0.6 mg/dL (0.2-1.3); Blood Urea Nitrogen 34 mg/dL (7-17); Calcium 10.2 mg/dL (8.4-10.2); Carbon Dioxide 28 mmol/L (22-30); Chloride 99 mmol/L (98-107); Estimated Glomerular Filt Rate 38; Glucose 100 mg/dL (65-110); Potassium 3.9 mmol/L (3.4-5.0); Sodium 137 mmol/L (137-145)
--- OUTSIDE RECORDS SUMMARY | 2024-12-17 23:41 | XMS_ITS | Referral Summary ---
Author Organization [facility] [address] Address [address] [place] [address] Care Team Providers Care Dough Mixer Helper Name Role Phone Landon Griffith MD Primary Care Provider Encounters Date Type Department Care Team Description 12/16/2024 10:15 AM CRABBER Office Visit [facility] Cardiology [address] [place] [address] Celso Santana MD Paroxysmal atrial fibrillation (CMS/HCC) (HCC) (Primary Dx); Chronic anticoagulation; On amiodarone therapy; Essential hypertension; LBBB (left bundle branch block); Stage 3b chronic kidney disease (HCC) from Last 3 Months Medications cholecalcifero l (VITAMIN D-3) 2,000 unit capsule Take 1 capsule (2,000 Units total) by mouth daily Active aMILoride-hydr oCHLOROthiazid e (MODURETIC) 5-50 mg tablet Take 1 tablet by mouth daily 9 Active oxybutynin XL (DITROPAN-XL) 10 mg 24 hr tablet Take 10 mg by mouth daily Active metoprolol tartrate (LOPRESSOR) 25 mg immediate release tablet TAKE ONE-HALF TABLET BY MOUTH TWICE DAILY 90 tablet 3 5 Active NIFEdipine XL 30 mg 24 hr tablet TAKE 1 TABLET BY MOUTH DAILY 90 tablet 3 5 Active amiodarone (PACERONE) 200 mg tablet TAKE 1 TABLET BY MOUTH DAILY 90 tablet 3 5 Active potassium chloride ER 10 mEq CR tablet Take 1 tablet/caps ule (10 mEq total) by mouth daily 90 tablet 6 5 Active rivaroxaban (Xarelto) 20 mg tablet Take 1 tablet (20 mg total) by mouth daily with dinner 90 tablet 6 5 Active potassium chloride ER 10 mEq CR tablet Take 1 tablet/caps ule (10 mEq total) by mouth daily 90 tablet 4 12/16/19 25 Discontinued amiodarone (PACERONE) 200 mg tablet Take 1 tablet (200 mg total) by mouth daily 90 tablet 12/16/19 25 Discontinued metoprolol tartrate (LOPRESSOR) 25 mg immediate release tablet Take 0.5 tablets (12.5 mg total) by mouth 2 (two) times a day 90 tablet 12/16/19 25 Discontinued NIFEdipine (NIFEdipine XL) 30 mg 24 hr tablet Take 1 tablet (30 mg total) by mouth daily 90 tablet 12/16/19 25 Discontinued rivaroxaban (Xarelto) 20 mg tablet TAKE 1 TABLET BY MOUTH DAILY 90 tablet 12/16/19 25 Discontinued Active Problems Problem Noted Date Diagnosed Date Atrial fibrillation ([facility]) [I48.91] 8 Warfarin therapy started 09/20/2017 Paroxysmal atrial fibrillation ([facility]) 017 Chronic anticoagulation 07/19/2017 Social History Tobacco Use Types Packs/Day Years Used Date Smoking Tobacco: Never Smokeless Tobacco: Never Tobacco Cessation:Counseling Given: Not Answered Alcohol Use Standard Drinks/Week Comments No 0 (1 standard drink = 0.6 oz pur e alcohol) Comments Unknown Sex and Gender Information Value Date Recorded Sex Assigned at Not on file Legal Sex Female 11:19 AM CDT Gender Identity Not on file Sexual Orientation Not on file Last Filed Vital Signs Vital Sign Reading Time Taken Comments Blood Pressure 138/68 12/16/2024 10:15 AM CRABBER Pulse 53 12/16/2024 10:15 AM CRABBER Temperature - - Respiratory Rate 16 03/24/2018 3:22 PM CDT Oxygen Saturation 94% 12/16/2024 10:15 AM CRABBER Inhaled Oxygen Concentration - - Weight 57.6 kg (127 lb) 12/16/2024 10:15 AM CRABBER Height 149.9 cm (4' 11 ) 12/16/2024 10:15 AM CRABBER Body Mass Index 25.65 12/16/2024 10:15 AM CRABBER Plan of Treatment Not on file Insurance [employer] MEDICARE PPO MEDICARE [facility] MED[facility] Address: [address] [address] [place] [address] Care Teams Dough Mixer Helper Relationship Specialty Start Date End Date Landon Griffith MD [address] [facility] [address] [place] [address] PCP - General Family Medicine 06/27/17
--- OUTSIDE RECORDS SUMMARY | 2024-12-17 23:41 | XMS_ITS | Continuity of Care Document ---
Author Organization [facility] Address [address] [place] [address] [address] [place] [address] Phone Care Team Providers Care Zone Manager Name Role Phone Umu Arzate Unavailable Unavailable Procedures Procedure Date Eye Exam & Treatment Refraction Advance Directives Directive Yes / No Effective Date File Name No Information Encounters Encounter Description Practice Location Reason(s) For Visit Diagnoses Date Provider Providers Copied on Encounter [facility], [address] [place] [address] [address], [place], [place], [id number], [place] tel:[phone] [facility] No Information 2-201 0 Carito Sanz. [address] , [address], [place], [address], [place]. tel:[phone] Family History Family Member Type Diagnosis Age At Onset No Information Payers Payer name Insurance type Covered democrat ID Authoriza tion(s) [employer] Plan CI [id number] Social History Type Description Quantity Date Captured [...]
--- OUTSIDE RECORDS SUMMARY | 2024-12-17 23:41 | XMS_ITS | Encounter Summary ---
Author Organization [facility] Address [address] [place] [address] Care Team Providers Care Block Layer Name Role Phone Landon Griffith MD Primary Care Provider Reason for Referral * Cardiology (Routine) - Authorized Specialty Diagnoses / Procedures Referred By Contac t Referred To Contact Diagnoses Paroxysmal atrial fibrillation (CMS/HCC) (HCC) Essential hypertension Procedures Transthoracic Echo (TTE) Complete W Doppler/CF Celso Santana MD [address] [place] [address] Phone: tel: fax: [facility] [address] [place] [phone] Phone: tel: fax: Referral ID Status Reason Start Date Expiration Date V isits Requested Visits Authorized [id number] Authorized 12/16/2024 01/15/2026 1 1 MER MATERIALS CONSULTANT Reason for Visit * Reason Comments Atrial Fibrillation 1 year follow up Encounter Details Date Type Department Care Team (Late st Contact Info) Description 12/16/2024 10:15 AM POLYMER MATERIALS CONSULTANT Office Visit [facility] [address] [place] [phone] Celso Santana MD [address] [place] [address] Paroxysmal atrial fibrillation (CMS/HCC) (HCC) (Primary Dx); Chronic anticoagulation; On amiodarone therapy; Essential hypertension; LBBB (left bundle branch block); Stage 3b chronic kidney disease (HCC) Social History Tobacco Use Types Packs/Day Years Used Date Smoking Tobacco: Never Smokeless Tobacco: Never Alcohol Use Standard Drinks/Week Comments No 0 (1 standard drink = 0.6 oz pur e alcohol) Comments Unknown Sex and Gender Information Value Date Recorded Sex Assigned at Not on file Legal Sex Female 11:19 AM CDT Gender Identity Not on file Sexual Orientation Not on file documented as of this encounter Last Filed Vital Signs Vital Sign Reading Time Taken Comments Blood Pressure 138/68 12/16/2024 10:15 AM POLYMER MATERIALS CONSULTANT Pulse 53 12/16/2024 10:15 AM POLYMER MATERIALS CONSULTANT Temperature - - Respiratory Rate - - Oxygen Saturation 94% 12/16/2024 10:15 AM POLYMER MATERIALS CONSULTANT Inhaled Oxygen Concentration - - Weight 57.6 kg (127 lb) 12/16/2024 10:15 AM POLYMER MATERIALS CONSULTANT Height 149.9 cm (4' 11 ) 12/16/2024 10:15 AM POLYMER MATERIALS CONSULTANT Body Mass Index 25.65 12/16/2024 10:15 AM POLYMER MATERIALS CONSULTANT documented in this encounter Ordered Prescriptions Prescription Sig Dispense Quantity Refills Last Filled Start Date End Date rivaroxaban (Xarelto) 20 mg tablet Take 1 tablet (20 mg total) by mouth daily with dinner 90 tablet 6 12/16/2024 potassium chloride ER 10 mEq CR tablet Take 1 tablet/capsu le (10 mEq total) by mouth daily 90 tablet 6 12/16/2024 documented in this encounter Progress Notes * Celso Santana MD - 12/16/2024 10:15 AM [facility]ST [facility] 12/16/2024 CHIEF COMPLAINT Chief Complaint Patient presents with Atrial Fibrillation 1 year follow up HPI Mervat Escobedo is a 84 y.o. female with PAF, hypertension, DJD. She is former patient of Dr. Grimaldo. Patient was diagnosed with atrial fibrillation when she was hospitalized in May 2017. She was apparently hospitalized for epigastric pain and ultimately underwent laparoscopic cholecystectomy in May 2017. Postoperatively, she had difficulty with fever and initiating diet as well as ileus. Her EKGhad showed atrial fibrillation with RVR. She was initiated on rivaroxaban prior to discharge. Later, her anticoagulation was switched to warfarin due to inability to afford the cost for rivaroxaban. 04/29/2019-on her initial visit with me today, patient reports that she has sporadic palpitations. She gets occasional dyspnea when she exerts heavy. Otherwise, she does not have dyspnea on exertion,and is able to walk few miles. No chest pain. She has occasional dizziness without syncope. She reports compliance with current medical regimen including anticoagulation warfarin, denies any bleedingcomplications. 08/05/2019-patient is here for the follow-up visit after recent echocardiogram. She reports occasional, transient palpitations, last episode was this morning. Currently, she does not have any ongoingpalpitations. She denies angina. She has dyspnea on heavy exertion. She is able to walk at least a mi before she gets short of breath. Patient has been experiencing nasal congestion recently. No fever or chills. Patient is on warfarin for anticoagulation. She has not been able to take 1 of the direct oral anticoagulants due to high co-pay. 06/01/2020-patient is here for the follow-up visit. She reports that she had an episode of dizziness the other night when she was trying to go to the bathroom. She was trying to get up from the bed when she felt dizzy. She did not have any syncope. No recurrence. Denies chest pain, shortness of breath, palpitations, PND, orthopnea or lower extremity swelling. She reports compliance with her medical regimen including anticoagulation with warfarin. However, her INRs have not been consistently within the therapeutic range. She is willing to switch to 1 of the direct oral anticoagulants. 04/05/2021-on the follow-up visit today, patient states that she has been doing well from cardiac standpoint. She denies palpitations, dizziness or syncope. No chest pain or shortness of breath for level of activity. Her activity is somewhat limited due to the knee pain. Denies any bleeding complications from anticoagulation. 04/11/2022-on the follow-up visit today, patient reports episodes of irregular heartbeat. Her activity is limited due to knee pain. She denies chest pain, shortness of breath, PND, orthopnea lower extremity swelling. Reports compliance with current medical regimen, denies any bleeding complications. 05/30/2022-patient is here for the routine follow-up visit. She reports that she has been having occasional orthostatic dizziness without syncope. Her heart rate has been in 40s at home with a blood pressure in 110s to 120s over 60s. She does not have any symptoms of irregular heartbeat at present.No chest pain, syncope, shortness of breath for level activity. Reports compliance with current medical regimen. Denies any bleeding complications. No recent falls. 08/08/2022-on the follow-up visit today, patient states that she gets short of breath when she tries to walk fast. She also has shortness of breath towards the end of the day in the evening. No chestpain. No palpitation, dizziness or syncope. No PND, orthopnea lower extremity swelling. She reportscompliance with current medical regimen, denies any bleeding complications. No recent falls. 02/06/2023-patient is here for the follow-up visit accompanied by her neighbor. She reports baseline dyspnea on exertion on climbing stairs. No chest pain. No palpitation, dizziness or syncope. She states that she recently had a mechanical fall without major injuries. Reports compliance with current medical regimen. She states her blood pressure is usually in 120s to 130s systolic at home. 12/16/2024-on follow-up visit today, patient reports dyspnea, when she exerts heavy. No palpitation, dizziness or syncope. No chest pain. Compliant with current medical regimen, denies any bleeding complications. MEDICAL HISTORY she has a past medical history of Diverticulitis, Hypertension, Osteoporosis, Septic shock(785.52),Urinary incontinence, and Varicose veins of both lower extremities. she has a past surgical history that includes Laparoscopic Cholecystectomy and Partial hysterectomy. she Not on File Current Outpatient Medications Medication Sig Dispense Refill aMILoride-hydroCHLOROthiazide (MODURETIC) 5-50 mg tablet Take 1 tablet by mouth daily cholecalciferol (VITAMIN D-3) 2,000 unit capsule Take 1 capsule (2,000 Units total) by mouth daily amiodarone (PACERONE) 200 mg tablet TAKE 1 TABLET BY MOUTH DAILY 90 tablet 3 metoprolol tartrate (LOPRESSOR) 25 mg immediate release tablet TAKE ONE-HALF TABLET BY MOUTH TWICE DAILY 90 tablet 3 NIFEdipine XL 30 mg 24 hr tablet TAKE 1 TABLET BY MOUTH DAILY 90 tablet 3 oxybutynin XL (DITROPAN-XL) 10 mg 24 hr tablet Take 10 mg by mouth daily (Patient not taking: Reported on 12/16/2024) potassium chloride ER 10 mEq CR tablet Take 1 tablet/capsule (10 mEq total) by mouth daily 90 tablet 6 rivaroxaban (Xarelto) 20 mg tablet Take 1 tablet (20 mg total) by mouth daily with dinner 90 tablet6 No current facility-administered medications for this visit. she family history includes Heart attack in her brother and mother; Lymphoma in her sister. she reports that she has never smoked. She has never used smokeless tobacco. She reports that she does not drink alcohol and does not use drugs. REVIEW OF SYSTEMS General ROS: negative for - Fever, chills, fatigue Psychological ROS: negative for - anxiety, depression Ophthalmic ROS: negative for -loss of vision ENT ROS: No epistaxis Allergy and Immunology ROS: negative for - hives, postnasal drip or seasonal allergies Hematological and Lymphatic ROS: negative for - bleeding problems, bruising Respiratory ROS: negative for - cough, hemoptysis, wheezing Cardiovascular ROS: negative for - chest pain, positive for dyspnea on moderate exertion Gastrointestinal ROS: negative for - abdominal pain, blood in stools Endocrine ROS: negative for - hot flashes, polydipsia/polyuria Musculoskeletal ROS: Degenerative arthritis ; joint pains Neurological ROS: negative for - gait disturbance, weakness Dermatological ROS: negative for pruritus, rash LABS AND OTHER DIAGNOSTIC TESTS REVIEWED No results found for: WBC , HGB , HCT , MCV , PLT No lab exists for component: LABALBU No results found for: WBC , HGB , HCT , MCV , PLT No results found for: CHOL No results found for: HDL No results found for: LDL ] No results found for: TRIG MPI- Negative EKG portion of stress test. Size is small to moderate. Severity is moderate. Locationof defect is in the apical anterior segment. Reversibility is full. Type of Type of defect is attenuation artifact. Resolved with prone imaging. Myocardial perfusion imaging is normal. Left ventricular ejection fraction is 61 %. 08/06/2017 Echo- Normal left ventricular systolic function. No focal wall motion abnormalities. Normal left ventricular size. Asymmetric septal hypertrophy. Diastolic dysfunction is present. Ejection fraction is visually estimated at 65- 70 %. Normal right ventricular systolic function. Moderate enlargement ofright ventricle. Moderate enlargement of left atrium. Mild mitral annular calcification. Mild mitral valve regurgitation. Mild tricuspid regurgitation. Moderate pulmonic regurgitation. Atrial fibrillation. 05/08/2019 Dr. Adan Labs-hemoglobin 13, creatinine 0.94. 06/01/2020 EKG-atrial fibrillation with controlled ventricular response, ventricular rate 79 beats per minute,PVC versus aberrant conduction. 04/11/2022 Labs-potassium 3.4, BUN 25, creatinine 1.23, AST 18, ALT 14, TSH 4.4. 04/14/2022 [facility] EKG-sinus bradycardia, heart rate 50 beats per minute, right axis deviation, interventricular conduction delay, artifact. 2022 Labs-potassium 3.4, BUN 25, creatinine 1.23. TSH 4.40. AST 18, ALT 14. 04/14/2022 EKG-sinus bradycardia, heart rate 53 beats per minute, LBBB. 02/06/2023 PHYSICAL EXAM Vitals BP 138/68 (BP Location: Left arm, Patient Position: Sitting) Pulse 53 Ht 149.9 cm (4' 11 ) Wt 57.6 kg (127 lb) SpO2 94% BMI 25.65 kg/m?? General appearance - alert, no distress, oriented to time, place, person Mental status - affect appropriate to mood Eyes - extraocular eye movements intact, no pallor Ears - external ears appear normal, hearing grossly normal Nose - normal and patent, no discharge Mouth - mucous membranes moist, tongue normal Neck - supple, no JVD Chest - clear to auscultation Heart - bradycardia, regular rhythm at present, systolic murmur left sternal border Abdomen - soft, nontender Neurological - alert, oriented, normal speech, no gross motor deficits Musculoskeletal - degenerative changes in the joint Extremities - no pedal edema, no clubbing or cyanosis Skin - no rashes (on the exposed areas), no cyanosis ASSESSMENT Diagnoses and all orders for this visit: Paroxysmal atrial fibrillation (CMS/HCC) (HCC) (Primary) - Transthoracic Echo (TTE) Complete W Doppler/CF; Future - Comprehensive metabolic panel; Future - CBC with auto differential; Future Chronic anticoagulation On amiodarone therapy - Comprehensive metabolic panel; Future - TSH; Future - X-ray chest 2 views; Future Essential hypertension - Transthoracic Echo (TTE) Complete W Doppler/CF; Future LBBB (left bundle branch block) Stage 3b chronic kidney disease (HCC) Other orders - potassium chloride ER 10 mEq CR tablet; Take 1 tablet/capsule (10 mEq total) by mouth daily - rivaroxaban (Xarelto) 20 mg tablet; Take 1 tablet (20 mg total) by mouth daily with dinner PLAN/RECOMMENDATIONS 84 y.o. female with paroxysmal atrial fibrillation, hypertension, CKD stage IIIB, DJD. - patient has paroxysmal atrial fibrillation, currently currently in sinus rhythm, after initiationof amiodarone. Continue amiodarone 200 mg p.o. daily and low-dose metoprolol tartrate for now. Anticoagulation with rivaroxaban. Patient was advised to take rivaroxaban with the dinner. Check thyroid panel, liver enzymes and CXR. - Clinic blood pressure mildly elevated. Home blood pressures are in 120s to 130s systolic. Continue current antihypertensives including metoprolol, nifedipine, amiloride/HCTZ. Continue to monitor heart rate and blood pressure at home. - patient currently on potassium supplementation for hypokalemia. Monitor electrolytes. - discussed the previous echocardiogram report with the patient. Her LV systolic function is normal, RV enlargement is reported, no significant volume overload at present. Repeat echo with Doppler. - counseling was done for heart healthy diet, aerobic exercise at least 5 times a week, Medication compliance. Fall precautions. Patient advised to stand up slowly from sitting position. - RTC about 10-12 months or sooner if needed. Celso Santana MD 12/16/24 Voice recognition software was used to complete this document, therefore, forklift technician variances may occur. MER MATERIALS CONSULTANT documented in this encounter Plan of Treatment Scheduled Orders Name Type Priority Associated Diagnoses Order Schedule Transthoracic Echo (TTE) Complete W Doppler/CF Echocardiography Routine Paroxysmal atrial fibrillation (CMS/HCC) (HCC) Essential hypertension Expected: 02/03/2025, Expires: 12/16/2025 Comprehensive metabolic panel Lab Routine Paroxysmal atrial fibrillation (CMS/HCC) (HCC) On amiodarone therapy Expected: 12/19/2024, Expires: 12/16/2025 CBC with auto differential Lab Routine Paroxysmal atrial fibrillation (CMS/HCC) (HCC) Expected: 12/19/2024, Expires: 12/16/2025 TSH Lab Routine On amiodarone therapy Expected: 12/19/2024, Expires: 12/16/2025 X-ray chest 2 views Imaging Schedule Routine, Read Routine (OP Routine) On amiodarone therapy Expected: 12/16/2024, Expires: 12/16/2025 documented as of this encounter Visit Diagnoses Diagnosis Paroxysmal atrial fibrillation (CMS/HCC) (HCC)- Primary Atrial fibrillation Chronic anticoagulation Encounter for long-term (current) use of anticoagulants On amiodarone therapy Essential hypertension Unspecified essential hypertension LBBB (left bundle branch block) Other left bundle branch block Stage 3b chronic kidney disease (HCC) documented in this encounter Discontinued Medications Medication Sig Discontinue Reason Start Date End Da te potassium chloride ER 10 mEq CR tablet Take 1 tablet/capsule (10 mEq total) by mouth daily 09/14/2024 12/16/2024 rivaroxaban (Xarelto) 20 mg tablet TAKE 1 TABLET BY MOUTH DAILY 10/26/2024 12/16/2024 documented as of this encounter Care Teams Block Layer Relationship Specialty Start Date End Date Landon Griffith MD [address] [facility] [address] [place] [address] PCP - General Family Medicine 06/27/17 documented as of this encounter
--- OUTSIDE RECORDS SUMMARY | 2024-12-17 23:41 | XMS_ITS | Clinical Summary ---
Author Organization [facility] [address] Address [address] [place] [address] Care Team Providers Care Wood Miller Name Role Phone Landon Griffith MD Primary Care Provider Medications cholecalcifero l (VITAMIN D-3) 2,000 unit [...] mg total) by mouth daily 90 tablet 4 12/16/19 25 Discontinued metoprolol tartrate (LOPRESSOR) 25 mg immediate release tablet Take 0.5 tablets (12.5 mg total) by mouth 2 (two) times a day 90 tablet 4 12/16/19 25 Discontinued NIFEdipine (NIFEdipine XL) 30 mg 24 hr tablet Take 1 tablet (30 mg total) by mouth daily 90 tablet 4 12/16/19 25 Discontinued rivaroxaban (Xarelto) 20 mg tablet TAKE 1 TABLET BY MOUTH DAILY 90 tablet 4 12/16/19 25 Discontinued Active Problems Problem Noted Date Diagnosed Date Atrial fibrillation (CMS/HCC) [I48.91] 8 Warfarin therapy started 09/20/2017 Paroxysmal atrial fibrillation (CMS/HCC) 017 Chronic anticoagulation 07/19/2017 Encounters Date Type Department Care Team Description 12/16/2024 10:15 AM DIRECTOR OF THE BIOPHYSICS FACILITY Office Visit [facility] [address] [place] [address] Celso Santana MD Paroxysmal atrial fibrillation (CMS/HCC) (HCC) (Primary Dx); Chronic anticoagulation; On amiodarone therapy; Essential hypertension; LBBB (left bundle branch block); Stage 3b chronic kidney disease (HCC) from Last 3 Months Surgical History Surgery Date Site/Laterality Comments LAPAROSCOPIC CHOLECYSTECTOMY PARTIAL HYSTERECTOMY Medical History Medical History Date Comments Hypertension Diverticulitis Osteoporosis Varicose veins of both lower extremities Urinary incontinence Septic shock(785.52) Family History Medical History Relation Name Comments Heart attack Brother Heart attack Mother Lymphoma Sister Relation Name Status Comments Brother Father Mother (Age 46) Sister Social History Tobacco Use Types Packs/Day Years [...] on file Sexual Orientation Not on file Obstetrics History Last Filed Vital Signs Vital Sign Reading Time Taken Comments Blood Pressure 138/68 12/16/2024 10:15 AM DIRECTOR OF THE BIOPHYSICS FACILITY Pulse 53 12/16/2024 10:15 AM DIRECTOR OF THE BIOPHYSICS FACILITY Temperature - - Respiratory Rate 16 03/24/2018 3:22 PM CDT Oxygen Saturation 94% 12/16/2024 10:15 AM DIRECTOR OF THE BIOPHYSICS FACILITY Inhaled Oxygen Concentration - - Weight 57.6 kg (127 lb) 12/16/2024 10:15 AM DIRECTOR OF THE BIOPHYSICS FACILITY Height 149.9 cm (4' 11 ) 12/16/2024 10:15 AM DIRECTOR OF THE BIOPHYSICS FACILITY Body Mass Index 25.65 12/16/2024 10:15 AM DIRECTOR OF THE BIOPHYSICS FACILITY Plan of Treatment Health Maintenance Due Date Last Done Comments Depression Screening 1942 Fall Risk Assessment 1940 Osteoporosis Screening-Bone Density Scan 1942 Hepatitis B Screening 1960 Zoster Vaccine (1 of 2) 1992 Well Visit 65+ 2007 Pneumococcal vaccine 65+ (2 of 2 - PPSV23 or PCV20) 01/09/2021 01/09/2020 Influenza Vaccine (#1) 2024 9, 08/05/2018, 09/02/2017 DTaP/Tdap/Td Vaccine (2 - Td or Tdap) 05/09/2026 Insurance [employer] CHOICE MEDICARE PPO [employer] Care Teams Wood Miller Relationship Specialty Start Date End Date Landon Griffith MD [address] [facility] [address] [place] [id number] PCP - General Family Medicine 06/27/17
== END 2024-12-16 10:54 | disposition home or self-care (01) ==
PROVIDERS: PCP Family Medicine; Visit Provider Internal Medicine Cardiovascular Disease
DX: Z79.899 Other long term (current) drug therapy (principal); I48.0 Paroxysmal atrial fibrillation
CPT/HCPCS: 36415; 71046; 80053; 84443; 85025

== ENCOUNTER 2025-06-05 09:14 | Outpatient (CLI) | payer MEDICARE, SELFPAY ==
--- OUTSIDE RECORDS SUMMARY | 2025-06-05 09:19 | XMS_ITS | Continuity of Care Document ---
Author Organization [facility] Address [address] [place] [address] [address] [place] [address] Phone Care Team Providers Care Research And Evaluation Manager Name Role Phone Umu Arzate Unavailable Unavailable Procedures Procedure Date Eye Exam & Treatment Refraction Advance Directives Directive Yes / No Effective Date File Name No Information Encounters Encounter Description Practice Location Reason(s) For Visit Diagnoses Date Provider Providers Copied on Encounter [facility], [address] [place] [address] [address], [place], [place], [id number], [place] tel:[phone] [facility] No Information [address] Carito Sanz. [address] [facility] , [address], [place], [address], [place]. tel:[phone] Family History Family Member Type Diagnosis Age At Onset No Information Payers Payer name Insurance type Covered democrat ID Authoriza tion(s) [employer] Plan CI [id number] Social History Type Description Quantity Date Captured [...]
--- OUTSIDE RECORDS SUMMARY | 2025-06-05 09:19 | XMS_ITS | Referral Summary ---
Author Organization [facility] [address] Address [address] [place] [address] Care Team Providers Care Fish Egg Packer Name Role Phone Landon Griffith MD Primary Care Provider Encounters Date Type Department Care Team Description 05/18/2025 Telephone [facility] [address] [place] [address] Celso Santana MD from Last 3 Months Medications cholecalciferol (VITAMIN D-3) 2,000 unit capsule Take 1 capsule (2,000 Units total) by mouth daily Active aMILoride-hydro CHLOROthiazide (MODURETIC) 5-50 mg tablet Take 1 tablet by mouth daily 02/25/2019 Active oxybutynin XL (DITROPAN-XL) 10 mg 24 hr tablet Take 10 mg by mouth daily Active metoprolol tartrate (LOPRESSOR) 25 mg immediate release tablet TAKE ONE-HALF TABLET BY MOUTH TWICE DAILY 90 tablet 12/16/2024 Active NIFEdipine XL 30 mg 24 hr tablet TAKE 1 TABLET BY MOUTH DAILY 90 tablet 12/16/2024 Active amiodarone (PACERONE) 200 mg tablet TAKE 1 TABLET BY MOUTH DAILY 90 tablet 12/16/2024 Active potassium chloride ER 10 mEq CR tablet Take 1 tablet/capsu le (10 mEq total) by mouth daily 90 tablet 12/16/2024 Active rivaroxaban (Xarelto) 20 mg tablet Take 1 tablet (20 mg total) by mouth daily with dinner 90 tablet 12/16/2024 Active NIFEdipine CC 30 mg 24 hr tablet TAKE 1 TABLET BY MOUTH EVERY DAY 90 tablet 1 04/26/2025 Active Active Problems Problem Noted Date Diagnosed Date Atrial fibrillation (CMS/HCC) [I48.91] 8 Warfarin therapy started 09/20/2017 Paroxysmal atrial fibrillation 07/19/2017 Chronic anticoagulation 07/19/2017 Social History Tobacco Use [...] Comments Blood Pressure 138/68 12/16/2024 10:15 AM BANJO REPAIRER Pulse 53 12/16/2024 10:15 AM BANJO REPAIRER Temperature - - Respiratory Rate 16 03/24/2018 3:22 PM CDT Oxygen Saturation 94% 12/16/2024 10:15 AM BANJO REPAIRER Inhaled Oxygen Concentration - - Weight 57.6 kg (127 lb) 12/16/2024 10:15 AM BANJO REPAIRER Height 149.9 cm (4' 11) 12/16/2024 10:15 AM BANJO REPAIRER Body Mass Index 25.65 12/16/2024 10:15 AM BANJO REPAIRER Plan of Treatment Not on file Insurance [employer] CHOICE MEDICARE PPO [facility] MEDICARE [facility] MEDICARE Address: [address] [address] [place] [address] [employer] CHOICE MEDICARE PPO [place] [id number] Care Teams Fish Egg Packer Relationship Specialty Start Date End Date Landon Griffith MD [address] [facility] [address] [place] [address] PCP - General Family Medicine 06/27/17
--- OUTSIDE RECORDS SUMMARY | 2025-06-05 09:19 | XMS_ITS | Clinical Summary ---
Author Organization [facility] [place] [address] Address [address] [place] [address] Care Team Providers Care Oil Pump Station Operator Chief Name Role Phone Landon Griffith MD Primary Care Provider Medications cholecalciferol (VITAMIN D-3) 2,000 unit capsule [...] BY MOUTH TWICE DAILY 90 tablet 3 12/16/2024 Active NIFEdipine XL 30 mg 24 hr tablet TAKE 1 TABLET BY MOUTH DAILY 90 tablet 3 12/16/2024 Active amiodarone (PACERONE) 200 mg tablet TAKE 1 TABLET BY MOUTH DAILY 90 tablet 3 12/16/2024 Active potassium chloride ER 10 mEq CR tablet Take 1 tablet/capsu le (10 mEq total) by mouth daily 90 tablet 6 12/16/2024 Active rivaroxaban (Xarelto) 20 mg tablet Take 1 tablet (20 mg total) by mouth daily with dinner 90 tablet 6 12/16/2024 Active NIFEdipine CC 30 mg 24 hr tablet TAKE 1 TABLET BY MOUTH EVERY DAY 90 tablet 1 04/26/2025 Active Active Problems Problem Noted Date Diagnosed Date Atrial fibrillation (CMS/HCC) [I48.91] 8 Warfarin therapy started 09/20/2017 Paroxysmal atrial fibrillation 07/19/2017 Chronic anticoagulation 07/19/2017 Encounters Date Type Department Care Team Description 05/18/2025 Telephone [facility] Cardiology [address] [place] [address] Celso Santana MD from Last 3 Months Surgical History Surgery [...] Comments Blood Pressure 138/68 12/16/2024 10:15 AM COMMUNICATION SKILLS INSTRUCTOR Pulse 53 12/16/2024 10:15 AM COMMUNICATION SKILLS INSTRUCTOR Temperature - - Respiratory Rate 16 03/24/2018 3:22 PM CDT Oxygen Saturation 94% 12/16/2024 10:15 AM COMMUNICATION SKILLS INSTRUCTOR Inhaled Oxygen Concentration - - Weight 57.6 kg (127 lb) 12/16/2024 10:15 AM COMMUNICATION SKILLS INSTRUCTOR Height 149.9 cm (4' 11) 12/16/2024 10:15 AM COMMUNICATION SKILLS INSTRUCTOR Body Mass Index 25.65 12/16/2024 10:15 AM COMMUNICATION SKILLS INSTRUCTOR Plan of Treatment Health Maintenance Due Date Last Done Comments Depression Screening 1942 Fall Risk Assessment 1942 Osteoporosis Screening-Bone Density Scan 1942 Hepatitis B Screening 1960 Zoster Vaccine (1 of 2) 1992 Well Visit 65+ 2007 Pneumococcal vaccine 65+ (2 of 2 - PPSV23) 01/09/2021 01/09/2020 Influenza Vaccine (#1) 2025 9, 08/05/2018, 09/02/2017 DTaP/Tdap/Td Vaccine (2 - Td or Tdap) 05/09/2026 Insurance HU[employer]NA CHOICE MEDICARE PPO [facility] MEDICARE ADVANTAGE [facility] MEDICARE Address: [address] [address] [place] [address] [employer]ICE MEDICARE PPO Care Teams Oil Pump Station Operator Chief Relationship Specialty Start Date End Date Landon Griffith MD [address] [facility] [address] [place] [address] PCP - General Family Medicine 06/27/17
[2025-06-05 10:34] LABS: Hematocrit 38.0 % (37.0-47.0); Hemoglobin 12.0 g/dL (12.0-15.0); Mean Corpuscular HGB Conc 31.6 g/dl (32-36); Mean Corpuscular Hemoglobin 30.8 pg (26-34); Mean Corpuscular Volume 97.4 fl (80-100); Platelet Count Result 218 k/mm3 (150-375); Red Blood Count 3.90 M/mm3 (4.2-5.4); White Blood Count 4.9 K/mm3 (4.5-10.0)
[2025-06-05 10:39] LABS: Add Urine Microscopic? YES; Appearance Urine Cloudy (Clear); Glucose Urine UA Negative (Negative); Leukocyte Esterase Ur 2+ LEU/UL (Negative); Nitrate Urine Positive (Negative); Non Pathogenic Casts 0-2; Specific Grav Ur 1.012 (1.001-1.035)
[2025-06-05 10:43] LABS: Hemoglobin A1C 5.4 % (<5.7)
[2025-06-05 10:55] LABS: Alanine Aminotransferase 21 U/L (6-35); Albumin Level 4.0 g/dL (3.5-5.1); Alkaline Phosphatase 65 U/L (38-126); Anion Gap 7 mmol/L (4-12); Aspartate Amino Transferase 32 U/L (14-36); Bilirubin,Total 0.4 mg/dL (0.2-1.3); Blood Urea Nitrogen 31 mg/dL (7-17); Calcium 9.7 mg/dL (8.4-10.2); Carbon Dioxide 29 mmol/L (22-30); Chloride 103 mmol/L (98-107); Cholesterol 232 mg/dL (0-200); Estimated Glomerular Filt Rate 33; Glucose 91 mg/dL (65-110); HDL Direct 78 mg/dL; Potassium 4.1 mmol/L (3.4-5.0); Sodium 139 mmol/L (137-145); Total Protein 7.1 g/dL (6.3-8.2); Triglycerides 85 mg/dL (<150)
[2025-06-05 11:30] LABS: Thyroid Stimulating Hormone 2.210 uIU/mL (0.465-4.680)
== END 2025-06-05 09:15 | disposition home or self-care (01) ==
PROVIDERS: PCP Family Medicine; Visit Provider Family Medicine
DX: R73.01 Impaired fasting glucose (principal); I10 Essential (primary) hypertension; I48.0 Paroxysmal atrial fibrillation; E78.5 Hyperlipidemia, unspecified; E03.9 Hypothyroidism, unspecified; Z00.00 Encounter for general adult medical examination without abnormal findings
CPT/HCPCS: 36415; 80053; 80061; 81001; 83036; 84443; 85027

== ENCOUNTER 2025-06-20 12:11 | Emergency (ER) | payer OTHER, SELFPAY ==
[2025-06-20 12:11] VITALS: BP 145/55; PULSE 63; RESP 16; TEMP 36.7; O2SAT 92
--- OUTSIDE RECORDS SUMMARY | 2025-06-20 12:15 | XMS_ITS | Continuity of Care Document ---
Author Organization [facility] Address [address] [place] [address] [address] [place] [address] Phone Care Team Providers Care First Aid Teacher Name Role Phone Umu Arzate Unavailable Unavailable Procedures Procedure Date Eye Exam & Treatment Refraction Advance Directives Directive Yes / No Effective Date File Name No Information Encounters Encounter Description Practice Location Reason(s) For Visit Diagnoses Date Provider Providers Copied on Encounter [facility], [address] [place] [address] [address], [place], [place], [id number], [place] tel:[phone] SEC [facility] No Information 2-201 0 Carito Sanz. [address] [facility] , [address], [place], [address], [place]. tel:[phone] Family History Family Member Type Diagnosis Age At Onset No Information Payers Payer name Insurance type Covered green party ID Authoriza tion(s) [employer] Vision Plan CI [id number] Social History Type Description Quantity Date Captured [...]
--- OUTSIDE RECORDS SUMMARY | 2025-06-20 12:15 | XMS_ITS | Clinical Summary ---
Author Organization [facility] [place] [address] Address [address] [place] [address] Care Team Providers Care Bordereau Clerk Name Role Phone Landon Griffith MD Primary [...] Type Department Care Team Description 05/18/2025 Telephone [facility] Cardiology [address] [place] [address] Celso Santana MD from Last [...] Comments Blood Pressure 138/68 12/16/2024 10:15 AM AWNING FRAME MAKER Pulse 53 12/16/2024 10:15 AM AWNING FRAME MAKER Temperature - - Respiratory Rate 16 03/24/2018 3:22 PM CDT Oxygen Saturation 94% 12/16/2024 10:15 AM AWNING FRAME MAKER Inhaled Oxygen Concentration - - Weight 57.6 kg (127 lb) 12/16/2024 10:15 AM AWNING FRAME MAKER Height 149.9 cm (4' 11) 12/16/2024 10:15 AM AWNING FRAME MAKER Body Mass Index 25.65 12/16/2024 10:15 AM AWNING FRAME MAKER Plan of Treatment Health Maintenance Due Date [...] Tdap) 05/09/2026 Insurance HUMANA CHOICE MEDICARE PPO [facility] MEDICARE ADVANTAGE [facility] MED[facility] Address: [address] [address] [place] [address] [employer] CHOICE MEDICARE PPO Care Teams Bordereau Clerk Relationship Specialty Start Date End Date Landon Griffith MD [address] [facility] [address] [place] [address] PCP - General Family Medicine 06/27/17
--- OUTSIDE RECORDS SUMMARY | 2025-06-20 12:15 | XMS_ITS | Referral Summary ---
Author Organization [facility] [place] [address] Address [address] [place] [address] Care Team Providers Care Behavioral Health Worker Name Role Phone Landon Griffith MD Primary Care Provider Encounters Date Type Department Care Team Description 05/18/2025 Telephone [facility] Cardiology [address] [place] [address] Celso Santana MD from Last [...] Comments Blood Pressure 138/68 12/16/2024 10:15 AM FITTER HAND Pulse 53 12/16/2024 10:15 AM FITTER HAND Temperature - - Respiratory Rate 16 03/24/2018 3:22 PM CDT Oxygen Saturation 94% 12/16/2024 10:15 AM FITTER HAND Inhaled Oxygen Concentration - - Weight 57.6 kg (127 lb) 12/16/2024 10:15 AM FITTER HAND Height 149.9 cm (4' 11) 12/16/2024 10:15 AM FITTER HAND Body Mass Index 25.65 12/16/2024 10:15 AM FITTER HAND Plan of Treatment Not on file Insurance HUMANA CHOICE MEDICARE PPO [facility] MEDICARE ADVANTAGE HU[employer] CHOICE MEDICARE PPO [place] [id number] Care Teams Behavioral Health Worker Relationship Specialty Start Date End Date Landon Griffith MD [address] [facility] [address] [place] [address] PCP - General Family Medicine 06/27/17
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
--- OUTSIDE RECORDS SUMMARY | 2025-06-20 12:58 | XMS_ITS | Referral Summary ---
Author Organization [facility] [address] Address [address] [place] [address] Care Team Providers Care German Professor Name Role Phone Landon Griffith MD Primary Care Provider Encounters Date Type Department Care Team Description 05/18/[address] [facility] Cardiology [address] [place] [address] Celso Santana MD from Last [...] Comments Blood Pressure 138/68 12/16/2024 10:15 AM WOOD GETTER Pulse 53 12/16/2024 10:15 AM WOOD GETTER Temperature - - Respiratory Rate 16 03/24/2018 3:22 PM CDT Oxygen Saturation 94% 12/16/2024 10:15 AM WOOD GETTER Inhaled Oxygen Concentration - - Weight 57.6 kg (127 lb) 12/16/2024 10:15 AM WOOD GETTER Height 149.9 cm (4' 11) 12/16/2024 10:15 AM WOOD GETTER Body Mass Index 25.65 12/16/2024 10:15 AM WOOD GETTER Plan of Treatment Not on file Insurance HUMANA CHOICE MEDICARE PPO [facility] MEDICARE ADVANTAGE [facility] MEDICARE Address: [address] [address] [place] [address] HU[employer]NA CHOICE MEDICARE PPO [place] [id number] Care Teams German Professor Relationship Specialty Start Date End Date Landon Griffith MD [address] [facility] [address] [place] [address] PCP - General Family Medicine 06/27/17
--- OUTSIDE RECORDS SUMMARY | 2025-06-20 12:58 | XMS_ITS | Clinical Summary ---
Author Organization [facility] [place] [address] Address [address] [place] [address] Care Team Providers Care Terrestrial Ecologist Name Role Phone Landon Griffith MD Primary [...] Type Department Care Team Description 05/18/2025 Telephone [facility] Cardiology [address] [place] [address] Celso Santana MD from Last [...] Comments Blood Pressure 138/68 12/16/2024 10:15 AM FLAT SURFACER JEWEL Pulse 53 12/16/2024 10:15 AM FLAT SURFACER JEWEL Temperature - - Respiratory Rate 16 03/24/2018 3:22 PM CDT Oxygen Saturation 94% 12/16/2024 10:15 AM FLAT SURFACER JEWEL Inhaled Oxygen Concentration - - Weight 57.6 kg (127 lb) 12/16/2024 10:15 AM FLAT SURFACER JEWEL Height 149.9 cm (4' 11) 12/16/2024 10:15 AM FLAT SURFACER JEWEL Body Mass Index 25.65 12/16/2024 10:15 AM FLAT SURFACER JEWEL Plan of Treatment Health Maintenance Due Date [...] Tdap) 05/09/2026 Insurance HUMANA CHOICE MEDICARE PPO [facility] MEDICARE [facility] MEDICARE Address: [address] [address] [place] [address] [employer] CHOICE MEDICARE PPO Care Teams Terrestrial Ecologist Relationship Specialty Start Date End Date Landon Griffith MD [address] [facility] [address] [place] [address] PCP - General Family Medicine 06/27/17
--- OUTSIDE RECORDS SUMMARY | 2025-06-20 12:58 | XMS_ITS | Continuity of Care Document ---
Author Organization [facility] Address [address] [place] [address] [address] [place] [address] Phone Care Team Providers Care Electromechanical Inspector Name Role Phone Umu Arzate Unavailable Unavailable Procedures Procedure Date Eye Exam & Treatment Refraction Advance Directives Directive Yes / No Effective Date File Name No Information Encounters Encounter Description Practice Location Reason(s) For Visit Diagnoses Date Provider Providers Copied on Encounter [facility], [address] [place] [address] [address], [place], [place], [id number], [place] tel:[phone] [facility] No Information 2-201 0 Carito Sanz. [address] [facility] , [address], [place], [address], [place]. tel:[phone] Family History Family Member Type Diagnosis Age At Onset No Information Payers Payer name Insurance type Covered green party ID Authoriza tion(s) [employer] Vision Plan CI [id number] Social History Type Description Quantity Date Captured [...]
== END 2025-06-20 12:59 | disposition home or self-care (01) ==
LOC: CHSED 12:56
PROVIDERS: Emergency Provider Emergency Medicine; PCP Family Medicine
DX: Z04.1 Encounter for examination and observation following transport accident (principal); E78.5 Hyperlipidemia, unspecified; I10 Essential (primary) hypertension; E03.9 Hypothyroidism, unspecified; I48.0 Paroxysmal atrial fibrillation; Z85.3 Personal history of malignant neoplasm of breast; Z79.01 Long term (current) use of anticoagulants; V43.62XA Car passenger injured in collision with other type car in traffic accident, initial encounter
CPT/HCPCS: 99282

== ENCOUNTER 2025-07-23 13:40 | Emergency (ER) | payer MEDICARE, SELFPAY ==
--- OUTSIDE RECORDS SUMMARY | 2010-07-06 04:30 | XMS_ITS | Continuity of Care Document ---
Author Organization [facility] Address [address] [place] [address] [address] [place] [address] Phone Care Team Providers Care Natural Remedy Consultant Name Role Phone Umu Arzate Unavailable Unavailable Procedures Procedure Date Eye Exam & Treatment Refraction Advance Directives Directive Yes / No Effective Date File Name No Information Encounters Encounter Description Practice Location Reason(s) For Visit Diagnoses Date Provider Providers Copied on Encounter [facility], [address] [place] [address] [address], [place], [place], [id number], [place] tel:[phone] [facility] No Information 2-[address] [facility] [place] , [address], [place], [address], [place]. tel:[phone] Family History Family Member Type Diagnosis Age At Onset No Information Payers Payer name Insurance type Covered constitution party ID Authoriza tion(s) [employer] Plan CI [id number] Social History Type Description Quantity Date Captured [...]
--- OUTSIDE RECORDS SUMMARY | 2010-07-06 04:30 | XMS_ITS | Continuity of Care Document ---
Author Organization [facility] Address [address] [place] [address] [address] [place] [address] Phone Care Team Providers Care Ultrasound Specialist Name Role Phone Umu Arzate Unavailable Unavailable Procedures Procedure Date Eye Exam & Treatment Refraction Advance Directives Directive Yes / No Effective Date File Name No Information Encounters Encounter Description Practice Location Reason(s) For Visit Diagnoses Date Provider Providers Copied on Encounter [facility], [address] [place] [address] [address], [place], [place], [id number], [place] tel:[phone] [facility] No Information 2-201 0 Carito Sanz. [address] [place] , [address], [place], [address], [place]. tel:[phone] Family History Family Member Type Diagnosis Age At Onset No Information Payers Payer name Insurance type Covered republican ID Authoriza tion(s) [employer] Plan CI [id number] Social History Type Description Quantity Date Captured [...]
--- NOTE | ~2025-07-23 | CT_ITS ---
EXAMINATION: CT facial & cervical spine , 07/23/2025 15:35 CDT HISTORY: trauma COMPARISON: No comparisons available. Technique: Axial images were obtained of the facial bones and spine per protocol. One or more of the following dose reduction techniques were used: automated exposure control, adjustment of the mA and/or kV according to patient size, use of iterative reconstruction technique. Unless otherwise stated, incidental findings do not require dedicated follow up imaging Findings: CT FACIAL BONES: The nasal bones appear intact. Anterior maxillary sinus brock and zygomatic arches are intact. Temporomandibular joints are intact. The orbital floors and medial and orbits are intact. There is moderate left maxillary and ethmoidal sinusitis with thickening of the left-sided turbinates with underlying polyp formation is suspected, left maxillary sinus mucous retention cyst measures 2 x 2 centimeters. Visualized brain parenchyma unremarkable. No retrobulbar hemorrhage. No preseptal soft tissue swelling. CT cervical spine: Soft tissues appear unremarkable. Subcentimeter bilateral thyroid nodules. There is grade 1 anterolisthesis of C2 on C3 and C3-C4, no fracture identified. Moderate loss of disc at C4-5 C5-6 and C6-7 with moderate to severe canal and foraminal stenosis. IMPRESSION: No acute fracture is identified Reviewed, dictated and finalized at location A.
--- NOTE | ~2025-07-23 | CT_ITS ---
EXAMINATION: CT brain kartik bob, 07/23/2025 15:30 CDT HISTORY: trauma COMPARISON: No comparisons available. Technique: Axial images obtained of the brain without contrast. One or more of the following dose reduction techniques were used: automated exposure control, adjustment of the mA and/or kV according to patient size, use of iterative reconstruction technique. Findings: No acute infarct or parenchymal hemorrhage. No abnormal mass or mass effect. No midline shift. No extra-axial fluid collections. No hydrocephalus. Mastoid air cells unremarkable. There is thickening of the turbinates especially on the left side with moderate left maxillary sinusitis, underlying polyp formation is suspected, outpatient ENT consult recommended. No acute fracture. No significant facial or scalp soft tissue swelling evident. No radiopaque foreign body is seen. Impression: 1.No acute intracranial abnormality. Reviewed, dictated and finalized at location A. Impression: 1.No acute intracranial abnormality.
--- NOTE | ~2025-07-23 | XR_ITS ---
Clinical history:Trauma EXAM:X-ray knee right 3 views TECHNIQUE:3 images of the right knee were obtained. Comparisons:07/05/2022 FINDINGS: Bones appear osteopenic. Right knee arthroplasty without radiographic evidence for loosening of the hardware. Vascular calcifications are present. Soft tissue swelling about the right knee. No fracture. No dislocation. IMPRESSION: 1. No fracture. No dislocation. 2. Right knee arthroplasty without radiographic evidence for loosening of the hardware. If symptoms persist or worsen, consider a short-term follow-up study or additional imaging for further assessment. Reviewed, dictated and finalized at location Q. IMPRESSION: 1. No fracture. No dislocation. 2. Right knee arthroplasty without radiographic evidence for loosening of the h ardware. If symptoms persist or worsen, consider a short-term follow-up study or additio nal imaging for further assessment.
--- OUTSIDE RECORDS SUMMARY | 2025-07-23 13:41 | XMS_ITS | Clinical Summary ---
Author Organization [facility] [place] [address] Address [address] [place] [address] Care Team Providers Care Grain Roaster Name Role Phone Landon Griffith MD Primary [...] Department Care Team Description 05/18/[address] [facility] Cardiology [address] [place] [address] Celso Santana MD from Last [...] Comments Blood Pressure 138/68 12/16/2024 10:15 AM WIDTH STRIPPER Pulse 53 12/16/2024 10:15 AM WIDTH STRIPPER Temperature - - Respiratory Rate 16 03/24/2018 3:22 PM CDT Oxygen Saturation 94% 12/16/2024 10:15 AM WIDTH STRIPPER Inhaled Oxygen Concentration - - Weight 57.6 kg (127 lb) 12/16/2024 10:15 AM WIDTH STRIPPER Height 149.9 cm (4' 11) 12/16/2024 10:15 AM WIDTH STRIPPER Body Mass Index 25.65 12/16/2024 10:15 AM WIDTH STRIPPER Plan of Treatment Health Maintenance Due Date Last Done Comments Depression Screening 1942 Fall Risk Assessment 1942 Osteoporosis Screening-Bone Density Scan 1942 Hepatitis B Screening 1960 Zoster Vaccine (1 of 2) 1992 Well Visit 65+ 2007 Pneumococcal vaccine 65+ (2 of 2 - PCV20 or PCV21) 01/09/2021 01/09/2020 Influenza Vaccine (#1) 2025 9, 08/05/2018, 09/02/2017 DTaP/Tdap/Td Vaccine (2 - Td or Tdap) 05/09/2026 Insurance HUMANA CHOICE MEDICARE PPO [facility] MEDICARE ADVANTAGE [employer] MEDICARE PPO Care Teams Grain Roaster Relationship Specialty Start Date End Date Landon Griffith MD [address] [address] PCP - General Family Medicine 06/27/17
[2025-07-23 14:05] VITALS: BP 130/66; PULSE 60; RESP 18; TEMP 36.7; O2SAT 98
--- OUTSIDE RECORDS SUMMARY | 2025-07-23 15:27 | XMS_ITS | Clinical Summary ---
Author Organization [facility] [place] [address] Address [address] [place] [address] Care Team Providers Care Shingle Sawyer Name Role Phone Landon Griffith MD Primary [...] [facility] Cardiology [address] [place] [address] Celso Santana MD from Last [...] Comments Blood Pressure 138/68 12/16/2024 10:15 AM AUDITOR INTERNAL Pulse 53 12/16/2024 10:15 AM AUDITOR INTERNAL Temperature - - Respiratory Rate 16 03/24/2018 3:22 PM CDT Oxygen Saturation 94% 12/16/2024 10:15 AM AUDITOR INTERNAL Inhaled Oxygen Concentration - - Weight 57.6 kg (127 lb) 12/16/2024 10:15 AM AUDITOR INTERNAL Height 149.9 cm (4' 11) 12/16/2024 10:15 AM AUDITOR INTERNAL Body Mass Index 25.65 12/16/2024 10:15 AM AUDITOR INTERNAL Plan of Treatment Health Maintenance Due Date [...] Tdap) 05/09/2026 Insurance HUMANA CHOICE MEDICARE PPO [facility] MEDICARE ADVANTAGE [facility] MEDIC[facility] Address: [address] [address] [place] [address] [employer]ICE MEDICARE PPO Care Teams Shingle Sawyer Relationship Specialty Start Date End Date Landon Griffith MD [address] [address] PCP - General Family Medicine 06/27/17
--- NOTE | 2025-07-23 15:35 | ED.GENADULT ---
HPI - General Adult General Chief complaint: Fall Stated complaint: fall Time Seen by Provider: 07/23/25 15:19 History of Present Illness HPI narrative: 85-year-old female present to the emergency department for evaluation after having a ground level fall. Patient reports she tripped walking on gravel and did strike her face. Patient states she did is have some slight pain to her right knee with no signs of injury. Patient is on Xarelto and is having a bloody nose since the fall. Related Data Home Medications ?Medication ?Instructions ?Recorded ?Confirmed ?Last Taken ?Type cholecalciferol (vitamin D3) 25 2,000 unit PO DAILY 12/15/20 05/31/25 07/03/21 History mcg (1,000 unit) tablet triamcinolone acetonide 0.1 % 1 applic topical DAILY PRN itching 06/19/21 05/31/25 Unknown History topical cream Allergies Allergy/AdvReac Type Severity Reaction Status Date / Time No Known Allergies Allergy Verified 05/31/25 14:48 Review of Systems Review of Systems: All systems reviewed & are unremarkable except as noted in HPI and below PMFSH Past Medical History Medical History BRANDO (obstructive sleep apnea) Osteoporosis HLD (hyperlipidemia) Osteoarthritis of both knees Heart murmur Current use of longterm anticoagulation Essential (primary) hypertension Hypothyroidism IFG (impaired fasting glucose) OAB (overactive bladder) Osteopenia Paroxysmal A-fib History of breast cancer Vitamin D deficiency, unspecified Surgical History Surgical History Vaginal prolapse History of lumpectomy History of tubal ligation History of hysterectomy History of cholecystectomy Family History Family History Sibling Family history of throat cancer Mother Acute myocardial infarction Other Diabetes mellitus Family history of arthritis Family history of coronary artery disease Family history of diabetes mellitus in first degree relative Social History Social History Social History: Smoking status: Never smoker Second hand tobacco smoke exposure: Yes Alcohol intake: never Substance use: never Substance use type: does not use Do You Feel Safe in your Home?: Yes Lack of Transportation: No Lack of Food: Never True Current Housing: I Have Housing Concerned About Future Housing: No Difficulty Paying Gas/Electric Bills: YES Difficulty Paying for Meds: No Currently Unemployed: No Education: High School Diploma/GED Difficulty w/ Childcare or Family Care: No Living arrangements: with family Additional living arrangements comments: SON AND [id number] Occupation/Education: retired Gender identity (if verbalized by the patient): Female Sexual Orientation (if Verbalized by the Patient): Straight or Heterosexual Spiritual care concerns: No Exam Narrative: APPEARANCE: Well appearing, no pain, no distress, well-nourished. HEAD: normocephalic, swelling of the upper lip with no laceration EYES: PERRLA/EOMI, conjunctivae clear. NOSE: Mild bleeding from bilateral nares but bleeding was controlled after nasal clamping EARS:TMS clear with good light reflex. THROAT: Pharynx clear, no exudate. NECK: Supple. No adenopathy, no masses. RESPIRATORY: Airway patent, respirations nonlabored. Clear to auscultation bilaterally, no rales, rhonchi, wheezing. CARDIOVASCULAR: Regular rate and rhythm without murmurs rubs or gallops. ABDOMINAL: Soft, nontender, nondistended, normal bowel sounds MUSCULOSKELETAL: Moves all extremities. Strength/ROM intact, No edema, No calf tenderness. NEURO: Alert. Cranial nerves II through XII intact. Good gait. Good coordination SKIN: Warm, dry. Normal Color Course Vital Signs Vital signs: Vital Signs Temperature 98.1 F 07/23/25 14:05 Pulse Rate 60 07/23/25 14:05 Respiratory Rate 18 07/23/25 14:05 Blood Pressure 130/66 07/23/25 14:05 Pulse Oximetry 98 07/23/25 14:05 Oxygen Delivery Room Air 07/23/25 14:05 Temperature 98.1 F 07/23/25 14:05 Pulse Rate 52 L 07/23/25 16:16 Respiratory Rate 18 07/23/25 16:16 Blood Pressure 164/69 H 07/23/25 16:16 Pulse Oximetry 98 07/23/25 16:16 Oxygen Delivery Room Air 07/23/25 16:15 Medical Decision Making MDM Narrative Medical decision making narrative: 85-year-old female presented to the emergency department for evaluation after having a ground level fall and striking her face. Patient did have some epistaxis this was resolved with nasal clamping. Patient has no posterior nasal bleeding into the posterior pharynx. Head CT, cervical spine CT and facial CT were negative. Knee x-ray was negative. On re-evaluation patient does feel improved. Differential Diagnosis Differential Diagnosis: Facial fracture subdural hematoma, subarachnoid hemorrhage, knee fracture Vital Signs Vital Signs: Vital Signs Temperature 98.1 F 07/23/25 14:05 Pulse Rate 60 07/23/25 14:05 Respiratory Rate 18 07/23/25 14:05 Blood Pressure 130/66 07/23/25 14:05 Pulse Oximetry 98 07/23/25 14:05 Oxygen Delivery Room Air 07/23/25 14:05 Temperature 98.1 F 07/23/25 14:05 Pulse Rate 52 L 07/23/25 16:16 Respiratory Rate 18 07/23/25 16:16 Blood Pressure 164/69 H 07/23/25 16:16 Pulse Oximetry 98 07/23/25 16:16 Oxygen Delivery Room Air 07/23/25 16:15 Imaging Data Radiologist's impression: Impressions Knee X-Ray 07/23/25 15:52 IMPRESSION: 1. No fracture. No dislocation. 2. Right knee arthroplasty without radiographic evidence for loosening of the hardware. If symptoms persist or worsen, consider a short-term follow-up study or additional imaging for further assessment. Head CT 07/23/25 15:53 Impression: 1.No acute intracranial abnormality. Head/Cervical Spine/Facial Bones CT 07/23/25 15:54 IMPRESSION: No acute fracture is identified Discharge Plan Discharge Clinical Impression: Epistaxis, Nasal injury, Head injury Patient Disposition: Home Condition: Stable Instructions: Antibiotic Form, Nosebleed (ED), Head Injury (ED) Additional Instructions: Follow head injury guidelines. If your nose re bleeds then use the nasal clamp for 15 minutes and repeat for a total of 3 times. If the bleeding is not controlled or if you have any worsening symptoms, questions or concerns then please call or return to the emergency department. Patient Language: Ukrainian Prescriptions: No Action cholecalciferol (vitamin D3) 25 mcg (1,000 unit) tablet 2,000 unit PO DAILY triamcinolone acetonide 0.1 % cream 1 applic topical DAILY PRN (Reason: itching) amiodarone 200 mg tablet 200 mg PO DAILY Qty: 90 3RF ibandronate 150 mg tablet 150 mg PO MONTHLY Qty: 3 3RF metoprolol tartrate 25 mg tablet 12.5 mg PO BID Qty: 90 3RF nifedipine 30 mg tablet extended release 30 mg PO DAILY Qty: 90 3RF Xarelto 20 mg tablet 20 mg PO DAILY Qty: 90 3RF amiloride-hydrochlorothiazide 5-50 mg tablet 1 tablet PO QAM Qty: 90 3RF potassium chloride 10 mEq tablet,ER particles/crystals 10 meq PO DAILY Qty: 90 3RF Follow-up/Referrals: Landon Griffith MD [Primary Care Provider, Family Practice]
[2025-07-23 16:15] VITALS: BP 164/69; PULSE 57; RESP 18; O2SAT 98
[2025-07-23 16:16] VITALS: BP 164/69; PULSE 52; RESP 18; O2SAT 98
== END 2025-07-23 17:00 | disposition home or self-care (01) ==
PROVIDERS: Emergency Provider Emergency Medicine; PCP Family Medicine
DX: S09.92XA Unspecified injury of nose, initial encounter (principal); R04.0 Epistaxis; I48.0 Paroxysmal atrial fibrillation; I10 Essential (primary) hypertension; E78.5 Hyperlipidemia, unspecified; E03.9 Hypothyroidism, unspecified; E55.9 Vitamin D deficiency, unspecified; N32.81 Overactive bladder; M17.0 Bilateral primary osteoarthritis of knee; M85.80 Other specified disorders of bone density and structure, unspecified site; M81.0 Age-related osteoporosis without current pathological fracture; G47.33 Obstructive sleep apnea (adult) (pediatric); Z96.651 Presence of right artificial knee joint; Z85.3 Personal history of malignant neoplasm of breast; Z90.49 Acquired absence of other specified parts of digestive tract; Z79.01 Long term (current) use of anticoagulants; Z79.899 Other long term (current) drug therapy; Z90.710 Acquired absence of both cervix and uterus; W01.0XXA Fall on same level from slipping, tripping and stumbling without subsequent striking against object, initial encounter; Z77.22 Contact with and (suspected) exposure to environmental tobacco smoke (acute) (chronic)
CPT/HCPCS: 70450; 70486; 72125; 73562; 99284

== ENCOUNTER 2025-07-23 20:03 | Emergency (ER) | payer MEDICARE, SELFPAY ==
--- OUTSIDE RECORDS SUMMARY | 2010-07-06 04:30 | XMS_ITS | Continuity of Care Document ---
Author Organization [facility] Address [address] [place] [address] [address] [place] [address] Phone Care Team Providers Care Rn Gynecology Name Role Phone Umu Arzate Unavailable Unavailable Procedures Procedure Date Eye Exam & Treatment Refraction Advance Directives Directive Yes / No Effective Date File Name No Information Encounters Encounter Description Practice Location Reason(s) For Visit Diagnoses Date Provider Providers Copied on Encounter [facility], [address] [place] [address] [address], [place], [place], [id number], [place] tel:[phone] [facility] No Information 2-201 0 Carito Sanz. [address] [facility] [place] , [address], [place], [address], [place]. tel:[phone] Family History Family Member Type Diagnosis Age At Onset No Information Payers Payer name Insurance type Covered democrat ID Authoriza tion(s) [employer] Plan CI [id number] Social History Type Description Quantity Date Captured [...]
--- OUTSIDE RECORDS SUMMARY | 2025-07-23 20:05 | XMS_ITS | Clinical Summary ---
Author Organization [facility] [address] Address [address] [place] [address] Care Team Providers Care Die Lay Out Worker Name Role Phone Landon Griffith MD [...] Type Department Care Team Description 05/18/2025 Telephone [facility] Cardiology [address] [place] [address] Celso Santana MD from Last [...] Comments Blood Pressure 138/68 12/16/2024 10:15 AM PAPER COLORER Pulse 53 12/16/2024 10:15 AM PAPER COLORER Temperature - - Respiratory Rate 16 03/24/2018 3:22 PM CDT Oxygen Saturation 94% 12/16/2024 10:15 AM PAPER COLORER Inhaled Oxygen Concentration - - Weight 57.6 kg (127 lb) 12/16/2024 10:15 AM PAPER COLORER Height 149.9 cm (4' 11) 12/16/2024 10:15 AM PAPER COLORER Body Mass Index 25.65 12/16/2024 10:15 AM PAPER COLORER Plan of Treatment Health Maintenance Due Date [...] Tdap) 05/09/2026 Insurance [employer] PPO [facility] MED[facility] Address: [address] [address] [place] [address] [employer] MED[employer] PPO Care Teams Die Lay Out Worker Relationship Specialty Start Date End Date Landon Griffith MD [address] [address] PCP - General Family Medicine 06/27/17
[2025-07-23 20:16] VITALS: BP 146/68; PULSE 63; RESP 16; TEMP 36.7; O2SAT 98
--- NOTE | 2025-07-23 21:46 | PC.NURSE ---
Pt has trickle of blood noted from nose. Pt is now reporting small amount of blood coming from eye. RN irrigated eye x2 with NS. There is a scant amount of blood that appears to be coming from corner of eye. Charge nurse made aware of concern and need for room. Pt being monitored in triage at this time. VSS. Pt remains alert and oriented.
[2025-07-23] MEDS: OXYMETAZOLINE HCL 0.05% NAS 15 ML BTL (*BKC) 1 SPRAY NASAL (23:43)
--- NOTE | 2025-07-24 00:16 | ED.GENADULT ---
HPI - General Adult General Chief complaint: Epistaxis Stated complaint: Nose Bleed Time Seen by Provider: 07/23/25 22:27 History of Present Illness HPI narrative: This is an 85-year-old female presenting with nose bleed. She was seen here earlier after a fall. Imaging that time was negative for intracranial hemorrhage or nasal bone fractures. However since then she has had persistent bleeding out of the left Antoine which she has been unable to control. Patient is on anticoagulation. Related Data Home Medications ?Medication ?Instructions ?Recorded ?Confirmed ?Last Taken ?Type cholecalciferol (vitamin D3) 25 2,000 unit PO DAILY 12/15/20 05/31/25 07/03/21 History mcg (1,000 unit) tablet triamcinolone acetonide 0.1 % 1 applic topical DAILY PRN itching 06/19/21 05/31/25 Unknown History topical cream Allergies Allergy/AdvReac Type Severity Reaction Status Date / Time No Known Allergies Allergy Verified 05/31/25 14:48 PMFSH Past Medical History Medical History BRANDO (obstructive sleep apnea) Osteoporosis HLD (hyperlipidemia) Osteoarthritis of both knees Heart murmur Current use of buttermaker helper anticoagulation Essential (primary) hypertension Hypothyroidism IFG (impaired fasting glucose) OAB (overactive bladder) Osteopenia Paroxysmal A-fib History of breast cancer Vitamin D deficiency, unspecified Surgical History Surgical History Vaginal prolapse History of lumpectomy History of tubal ligation History of hysterectomy History of cholecystectomy Family History Family History Sibling Family history of throat cancer Mother Acute myocardial infarction Other Diabetes mellitus Family history of arthritis Family history of coronary artery disease Family history of diabetes mellitus in first degree relative Social History Social History Social History: Smoking status: Never smoker Second hand tobacco smoke exposure: Yes Alcohol intake: never Substance use: never Substance use type: does not use Do You Feel Safe in your Home?: Yes Lack of Transportation: No Lack of Food: Never True Current Housing: I Have Housing Concerned About Future Housing: No Difficulty Paying Gas/Electric Bills: YES Difficulty Paying for Meds: No Currently Unemployed: No Education: High School Diploma/GED Difficulty w/ Childcare or Family Care: No Living arrangements: with family Additional living arrangements comments: SON AND [id number] Occupation/Education: retired Gender identity (if verbalized by the patient): Female Sexual Orientation (if Verbalized by the Patient): Straight or Heterosexual Spiritual care concerns: No Exam Narrative: APPEARANCE: No apparent distress. Head: atraumatic. EYES: EOMI, left periorbital ecchymosis NOSE: bruising and swelling over the nasal bones, nasal clamp in place NECK: Trachea midline RESPIRATORY: No increased rate of breathing CARDIOVASCULAR: RRR, ABDOMINAL: Non-distended MUSCULOSKELETAl: No obvious deformities NEURO: Alert. Moving 4/4 extremities SKIN:: Warm, dry. Normal color PSYCHIATRIC: Normal affect Course Vital Signs Vital signs: Vital Signs Temperature 98.1 F 07/23/25 20:16 Pulse Rate 63 07/23/25 20:16 Respiratory Rate 16 07/23/25 20:16 Blood Pressure 146/68 H 07/23/25 20:16 Pulse Oximetry 98 07/23/25 20:16 Oxygen Delivery Room Air 07/23/25 20:16 Temperature 98.1 F 07/23/25 20:16 Pulse Rate 63 07/23/25 20:16 Respiratory Rate 16 07/23/25 20:16 Blood Pressure 146/68 H 07/23/25 20:16 Pulse Oximetry 98 07/23/25 20:16 Oxygen Delivery Room Air 07/23/25 20:16 Procedures Epistaxis Control left: Epistaxis Control Date: 07/24/25 Time Out Performed: Yes Nose Prepped With: lidocaine Direct Inspection: unable to visualize Clots Removed by: blowing nose Cautery Used: none Device Inserted: hemostatic balloon Device Size: 7 Patient Tolerated Procedure: well and no complications Medical Decision Making MDM Narrative Medical decision making narrative: -Course: 85-year-old female presenting with nose bleed. Unable to control direct pressure. Nose was evacuated and she was given Afrin which was unsuccessful. Eventually a nasal rocket was placed in left Antoine with hemostasis. Patient will be discharged follow-up with ENT. It is a holiday weekend. She is told she can not see an ENT on Saturday she should come back to the ED for balloon removal. -DDX includes but is not limited to: Anterior bleed, posterior bleed Vital Signs Vital Signs: Vital Signs Temperature 98.1 F 07/23/25 20:16 Pulse Rate 63 07/23/25 20:16 Respiratory Rate 16 07/23/25 20:16 Blood Pressure 146/68 H 07/23/25 20:16 Pulse Oximetry 98 07/23/25 20:16 Oxygen Delivery Room Air 07/23/25 20:16 Temperature 98.1 F 07/23/25 20:16 Pulse Rate 63 07/23/25 20:16 Respiratory Rate 16 07/23/25 20:16 Blood Pressure 146/68 H 07/23/25 20:16 Pulse Oximetry 98 07/23/25 20:16 Oxygen Delivery Room Air 07/23/25 20:16 Discharge Plan Discharge Clinical Impression: Epistaxis Patient Disposition: Home Condition: Stable Instructions: Antibiotic Form, Nosebleed (ED) Additional Instructions: You were seen for a nose bleed. Please leave the balloon in your nose. Do not blow your nose. Sneeze with your mouth open. The nasal balloon should be removed in 48-72 hours. If you are unable to contact the ENT below please return to the ED for removal. Patient Language: Belarusian Prescriptions: No Action cholecalciferol (vitamin D3) 25 mcg (1,000 unit) tablet 2,000 unit PO DAILY triamcinolone acetonide 0.1 % cream 1 applic topical DAILY PRN (Reason: itching) amiodarone 200 mg tablet 200 mg PO DAILY Qty: 90 3RF ibandronate 150 mg tablet 150 mg PO MONTHLY Qty: 3 3RF metoprolol tartrate 25 mg tablet 12.5 mg PO BID Qty: 90 3RF nifedipine 30 mg tablet extended release 30 mg PO DAILY Qty: 90 3RF Xarelto 20 mg tablet 20 mg PO DAILY Qty: 90 3RF amiloride-hydrochlorothiazide 5-50 mg tablet 1 tablet PO QAM Qty: 90 3RF potassium chloride 10 mEq tablet,ER particles/crystals 10 meq PO DAILY Qty: 90 3RF Follow-up/Referrals: Landon Griffith MD [Primary Care Provider, Family Practice] Jeffrey Parnell MD [Physician, Ear, Nose, Throat] - 3 Days Referral Note: Epistaxis w/ packing
[2025-07-24] MEDS: LIDO 1%/EPINEPHRINE 1:100,000 20 ML VIAL 10 ML INFILTRATE (01:08)
== END 2025-07-24 02:04 | disposition home or self-care (01) ==
PROVIDERS: Emergency Provider Emergency Medicine; PCP Family Medicine
DX: R04.0 Epistaxis (principal); I10 Essential (primary) hypertension; E78.5 Hyperlipidemia, unspecified; I48.0 Paroxysmal atrial fibrillation; E03.9 Hypothyroidism, unspecified; E55.9 Vitamin D deficiency, unspecified; G47.33 Obstructive sleep apnea (adult) (pediatric); N32.81 Overactive bladder; M17.0 Bilateral primary osteoarthritis of knee; M85.80 Other specified disorders of bone density and structure, unspecified site; M81.0 Age-related osteoporosis without current pathological fracture; Z85.3 Personal history of malignant neoplasm of breast; Z90.49 Acquired absence of other specified parts of digestive tract; Z90.710 Acquired absence of both cervix and uterus; Z79.01 Long term (current) use of anticoagulants; Z79.899 Other long term (current) drug therapy
CPT/HCPCS: 30901; 99283; A9270; J2004

== ENCOUNTER 2025-07-26 15:22 | Emergency (ER) | payer MEDICARE, SELFPAY ==
--- OUTSIDE RECORDS SUMMARY | 2010-07-06 04:30 | XMS_ITS | Continuity of Care Document ---
Author Organization [facility] Address [address] [place] [address] [address] [place] [address] Phone Care Team Providers Care Diffusion Furnace Operator Name Role Phone Umu Arzate Unavailable Unavailable Procedures Procedure Date Eye Exam & Treatment Refraction Advance Directives Directive Yes / No Effective Date File Name No Information Encounters Encounter Description Practice Location Reason(s) For Visit Diagnoses Date Provider Providers Copied on Encounter [facility], [address] [place] [address] [address], [place], [place], [id number], [place] tel:[phone] [facility] No Information 2-201 0 Carito Sanz. [address] [facility] [place] , [address], [place], [address], [place]. tel:[phone] Family History Family Member Type Diagnosis Age At Onset No Information Payers Payer name Insurance type Covered green party ID Authoriza tion(s) [employer] Plan CI [id number] Social History Type Description Quantity Date Captured Comments Sex Female Smoking Status No Information Chief Complaint And Reason For Visit No Information Reason For Referral Reason For Referral No Information History Of Present Illness Encounter Date Complaint History Of Prese nt Illness No Information Functional Status Date Functional Assessmen t No Information Instructions Date Instruction Additional Infor mation No Information Assessments Type Assessment Date No Information Patient Care Teams Name Effective Dates (start - stop) Status Members No Information
--- NOTE | 2025-07-26 15:35 | ED.GENADULT ---
HPI - General Adult General Chief complaint: Unspecified Stated complaint: needs rhino rocket removed Time Seen by Provider: 07/26/25 15:26 History of Present Illness HPI narrative: 85-year-old female presents to the emergency department for evaluation for removal of her rhino rocket. Patient had the rhino rocket placed 2 days ago. Related Data Home Medications ?Medication ?Instructions ?Recorded ?Confirmed ?Last Taken ?Type cholecalciferol (vitamin D3) 25 2,000 unit PO DAILY 12/15/20 05/31/25 07/03/21 History mcg (1,000 unit) tablet triamcinolone acetonide 0.1 % 1 applic topical DAILY PRN itching 06/19/21 05/31/25 Unknown History topical cream Allergies Allergy/AdvReac Type Severity Reaction Status Date / Time No Known Allergies Allergy Verified 05/31/25 14:48 Review of Systems Review of Systems: All systems reviewed & are unremarkable except as noted in HPI and below PMFSH Past Medical History Medical History BRANDO (obstructive sleep apnea) Osteoporosis HLD (hyperlipidemia) Osteoarthritis of both knees Heart murmur Current use of fpc anticoagulation Essential (primary) hypertension Hypothyroidism IFG (impaired fasting glucose) OAB (overactive bladder) Osteopenia Paroxysmal A-fib History of breast cancer Vitamin D deficiency, unspecified Surgical History Surgical History Vaginal prolapse History of lumpectomy History of tubal ligation History of hysterectomy History of cholecystectomy Family History Family History Sibling Family history of throat cancer Mother Acute myocardial infarction Other Diabetes mellitus Family history of arthritis Family history of coronary artery disease Family history of diabetes mellitus in first degree relative Social History Social History Social History: Smoking status: Never smoker Second hand tobacco smoke exposure: Yes Alcohol intake: never Substance use: never Substance use type: does not use Do You Feel Safe in your Home?: Yes Lack of Transportation: No Lack of Food: Never True Current Housing: I Have Housing Concerned About Future Housing: No Difficulty Paying Gas/Electric Bills: YES Difficulty Paying for Meds: No Currently Unemployed: No Education: High School Diploma/GED Difficulty w/ Childcare or Family Care: No Living arrangements: with family Additional living arrangements comments: SON AND [id number] Occupation/Education: retired Gender identity (if verbalized by the patient): Female Sexual Orientation (if Verbalized by the Patient): Straight or Heterosexual Spiritual care concerns: No Exam Narrative: APPEARANCE: Well appearing, no pain, no distress, well-nourished. HEAD: normocephalic, atraumatic. EYES: PERRLA/EOMI, conjunctivae clear. NOSE: Normal no drainage EARS:TMS clear with good light reflex. THROAT: Pharynx clear, no exudate. NECK: Supple. No adenopathy, no masses. RESPIRATORY: Airway patent, respirations nonlabored. Clear to auscultation bilaterally, no rales, rhonchi, wheezing. CARDIOVASCULAR: Regular rate and rhythm without murmurs rubs or gallops. ABDOMINAL: Soft, nontender, nondistended, normal bowel sounds MUSCULOSKELETAL: Moves all extremities. Strength/ROM intact, No edema, No calf tenderness. NEURO: Alert. Cranial nerves II through XII intact. Good gait. Good coordination SKIN: Warm, dry. Normal Color Medical Decision Making MDM Narrative Medical decision making narrative: Epistaxis has resolved. Patient's rhino rocket from the left nostril was removed. Patient was observed in the emergency department for 30 minutes of bleeding remained resolved. Discharge Plan Discharge Clinical Impression: Epistaxis Patient Disposition: Home Condition: Stable Instructions: Antibiotic Form, Nosebleed (ED) Patient Language: [place] Citizen Prescriptions: No Action cholecalciferol (vitamin D3) 25 mcg (1,000 unit) tablet 2,000 unit PO DAILY triamcinolone acetonide 0.1 % cream 1 applic topical DAILY PRN (Reason: itching) amiodarone 200 mg tablet 200 mg PO DAILY Qty: 90 3RF ibandronate 150 mg tablet 150 mg PO MONTHLY Qty: 3 3RF metoprolol tartrate 25 mg tablet 12.5 mg PO BID Qty: 90 3RF nifedipine 30 mg tablet extended release 30 mg PO DAILY Qty: 90 3RF Xarelto 20 mg tablet 20 mg PO DAILY Qty: 90 3RF amiloride-hydrochlorothiazide 5-50 mg tablet 1 tablet PO QAM Qty: 90 3RF potassium chloride 10 mEq tablet,ER particles/crystals 10 meq PO DAILY Qty: 90 3RF Follow-up/Referrals: Landon Griffith MD [Primary Care Provider, Family Practice]
--- NOTE | 2025-07-26 15:39 | PC.NURSE ---
MD removed rhino-rocket. No bleeding noted. Patient to stay for 30 minutes to watch for bleeding.
--- NOTE | 2025-07-26 16:06 | PC.NURSE ---
No nose bleed noted. Patient educated on coming back to ED if nose bleed starts again.
== END 2025-07-26 16:07 | disposition home or self-care (01) ==
LOC: ANHED 15:47
PROVIDERS: Emergency Provider Emergency Medicine; PCP Family Medicine
DX: T17.1XXA Foreign body in nostril, initial encounter (principal); G47.30 Sleep apnea, unspecified; E78.5 Hyperlipidemia, unspecified; M17.0 Bilateral primary osteoarthritis of knee; Z79.01 Long term (current) use of anticoagulants; I10 Essential (primary) hypertension; E03.9 Hypothyroidism, unspecified; I48.91 Unspecified atrial fibrillation; Z85.3 Personal history of malignant neoplasm of breast; W44.8XXA Other foreign body entering into or through a natural orifice, initial encounter
CPT/HCPCS: 99281